=== PATIENT | female | born 1995 | race Caucasian/White ===

== ENCOUNTER 2019-10-10 17:37 | Emergency (ER) | payer OTHER ==
[2019-10-10 17:42] VITALS: BP 122/89; RESP 18; TEMP 98.7
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
[2019-10-10 19:23] VITALS: PULSE 89
== END 2019-10-10 19:22 | disposition home or self-care (01) ==
LOC: EC 17:37
DX: S00.83XA Contusion of other part of head, initial encounter (principal); S00.31XA Abrasion of nose, initial encounter; Z87.891 Personal history of nicotine dependence; Y04.0XXA Assault by unarmed brawl or fight, initial encounter; Y93.89 Activity, other specified; Y92.009 Unspecified place in unspecified non-institutional (private) residence as the place of occurrence of the external cause
CPT/HCPCS: 70486; 99284

== ENCOUNTER 2019-10-13 12:48 | Emergency (ER) | payer OTHER ==
[2019-10-13 13:43] VITALS: BP 140/71; PULSE 78; RESP 18; TEMP 98.3
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
== END 2019-10-13 14:21 | disposition home or self-care (01) ==
LOC: EC 12:48
DX: H10.89 Other conjunctivitis (principal); S00.83XA Contusion of other part of head, initial encounter; Z87.891 Personal history of nicotine dependence; X58.XXXA Exposure to other specified factors, initial encounter
CPT/HCPCS: 99283

== ENCOUNTER 2023-05-11 20:02 | Emergency (ER) | payer BC, OTHER ==
[2023-05-11 20:12] VITALS: RESP 18
[2023-05-11 20:57] LABS: Appearance,Urine Clear (Clear); Bilirubin,Urine Negative (Negative); Blood,Urine Negative (Negative); Color,Urine Yellow; Glucose,Urine (UA) Negative (Negative); Ketones,Urine 1+ (Negative); Leukocyte Esterase,Urine Negative (Negative); Nitrite,Urine Negative (Negative); Protein,Urine Negative (Negative); Specific Gravity,Urine 1.015 (1.001-1.035); Urobilinogen,Urine <2.0 mg/dL (<2.0)
[2023-05-11] MEDS ORDERED: ACETAMINOPHEN TAB 500 MG TAB PO STA (22:12)
[2023-05-11 23:18] LABS: Basophils % (A) 0 %; Eosinophils # (A) 0.2 k/uL (0-0.7); Eosinophils % (A) 2 %; HCT 37.9 % (34.0-46.0); HGB 12.6 gm/dL (11.4-16.0); Lymphocytes # (A) 3.9 k/uL (1.0-4.8); Lymphocytes % (A) 30 %; MCH 28.1 pg (25.0-35.0); MCHC 33.3 g/dL (31.0-37.0); MCV 84.4 fL (80.0-100.0); Mean Platelet Volume 8.2; Monocytes # (A) 0.6 k/uL (0-1.0); Monocytes % (A) 4 %; Neutrophils # (A) 8.2 k/uL (1.3-7.7); Neutrophils % (A) 63 %; Platelet Count 181 k/uL (150-450); RBC 4.49 m/uL (3.80-5.40); RDW 13.5 % (11.5-15.5)
[2023-05-11 23:32] LABS: African American GFR (CKD) >90 (>60 ml/min/1.73 sqM); Anion Gap 7 mmol/L; Blood Urea Nitrogen 6 mg/dL (7-17); Calcium 8.7 mg/dL (8.4-10.2); Carbon Dioxide 23 mmol/L (22-30); Chloride 104 mmol/L (98-107); Glucose 85 mg/dL (74-99); Non-African American GFR(CKD) >90 (>60 ml/min/1.73 sqM); Potassium 3.5 mmol/L (3.5-5.1); Sodium 134 mmol/L (137-145)
[2023-05-11 23:38] LABS: Partial Thromboplastin Time 23.3 sec (22.0-30.0); Prothrombin Time 10.7 sec (9.0-12.0)
--- NOTE | 2023-05-11 23:54 | US ---
EXAM: US Pelvis Transabdominal and Transvaginal, Complete CLINICAL HISTORY: ITS.REASON US Reason: lower abd cramping TECHNIQUE: Real-time complete transabdominal and transvaginal pelvic ultrasound with image documentation. Transvaginal imaging was used for better evaluation of the endometrium and adnexa. COMPARISON: No relevant prior studies available. FINDINGS: Single, intrauterine gestation with an estimated gestational age of 6 weeks 5 days. Estimated delivery date December 30, 2023. heart rate not detected. [place]-rump length measures 4 mm, therefore follow-up exam recommended to reevaluate. Heartbeat should be detected by 7 mm. Ovaries are within normal limits. No free fluid in the pelvis. IMPRESSION: heart rate not detected. [place]-rump length measures 4 mm, therefore follow-up exam recommended to reevaluate. Heartbeat should be detected by 7 mm.
[2023-05-12 00:15] LABS: HCG,Quantitative Serum 64546.7 mIU/mL
--- NOTE | 2023-05-12 00:33 | ED ---
General Adult HPI - General Chief complaint: Abdominal Pain Stated complaint: abd pain Time Seen by Provider: 05/11/23 21:53 Source: patient, RN notes reviewed, old records reviewed Mode of arrival: ambulatory Limitations: no limitations - History of Present Illness Initial comments: Patient is a 28-year-old female who presents emergency Department complaining of lower abdominal cramping. Recently, she is . Presents over concern for the cramping and . Denies any vaginal discharge or bleeding. Denies any nausea or vomiting. Denies any other abdominal pain. Denies any chest pain or shortness of breath. Presents for further evaluation at this time. Has not yet followed up with [facility] but is waiting for an appointment which should be scheduled within the next few days. Has started vitamins. Patient is . - Related Data Previous Rx's Medication Instructions Recorded Ondansetron HCl [Zofran] 4 mg PO Q8HR #12 tab 06/16/14 Polymyxin B-Trimeth Sulf Ophth 1 drops BOTH EYES Q4H #1 bottle 10/13/19 [Polytrim Opthalmic] Allergies Allergy/AdvReac Type Severity Reaction Status Date / Time No Known Allergies Allergy Verified 05/11/23 20:12 Review of Systems ROS Statement: Those systems with pertinent positive or pertinent negative responses have been documented in the HPI. Review of Systems: CONST: Denies fever EYES: Denies blurry vision ENT: Denies nasal congestion C/V: Denies Chest pain RESP: Denies shortness of breath GI: Endorses abdominal cramping : Denies dysuria SKIN: Denies rash. MSK: Denies joint pain. NEURO: Denies headache ROS Other: All systems not noted in ROS Statement are negative. Past Medical History Past Medical History: No Reported History History of Any Multi-Drug Resistant Organisms: None Reported Past Surgical History: No Surgical Hx Reported Past Psychological History: ADD/ADHD Past Alcohol Use History: None Reported Past Drug Use History: None Reported General Exam - General Exam Comments Initial Comments: General: Appears in no acute distress. HEAD: Normal with no signs of head trauma. EYES: PERRLA, EOMI, conjunctiva normal, no discharge. ENT: Hearing grossly intact, normal oropharynx. RESPIRATORY: Clear breath sounds bilaterally. No wheezes, rales, or rhonchi. C/V: Regular rate and rhythm. S1 and S2 auscultated, no edema, peripheral pulses 2+ and intact throughout ABD: Abd is soft, nontender, nondistended EXT: Normal range of motion, no obvious deformity SKIN: No rashes or lesions observed on exposed skin. NEURO: Alert and Oriented 4. Limitations: no limitations Course Vital Signs 05/11/23 05/12/23 20:07 00:43 Temperature 97.7 F 98.2 F Pulse Rate 79 68 Respiratory 18 18 Rate Blood Pressure 136/85 119/76 O2 Sat by Pulse 98 98 Oximetry Medical Decision Making - Medical Decision Making Was pt. sent in by a medical professional or institution (, PA, TAPE LIBRARIAN, urgent care, hospital, or custodial...) When possible be specific @ -No Did you speak to anyone other than the patient for history (EMS, parent, family, police, friend...)? What history was obtained from this source @ -No Did you review nursing and triage notes (agree or disagree)? Why? @ -I reviewed and agree with nursing and triage notes Were old charts reviewed (outside hosp., previous admission, EMS record, old EKG, old radiological studies, urgent care reports/EKG's, custodial records)? Report findings @ -No old charts were reviewed Differential Diagnosis (chest pain, altered mental status, abdominal pain women, abdominal pain men, vaginal bleeding, weakness, fever, dyspnea, syncope, headache, dizziness, GI bleed, back pain, seizure, CVA, palpatations, mental health, musculoskeletal)? @ -Differential Abdominal Pain Women: Appendicitis, Cholecystitis, diverticulosis, ischemic bowel, pancreatitis, hepat itis, UTI, gastroenteritis, AAA, incarcerated hernia, bowel obstruction, constipation, inflammatory bowel, hepatitis, peptic ulcer disease, splenic infarction, perforated viscus, vulvitis, ovarian torsion, PID, kidney stone, placenta abruption, this is not meant to be an all-inclusive list EKG interpreted by me (3pts min.). @ -None done X-rays interpreted by me (1pt min.). @ -None done CT interpreted by me (1pt min.). @ -None done U/S interpreted by me (1pt. min.). @ -Ultrasound was interpreted by radiology as revealing an intrauterine gesta tion with estimated age of 6 weeks and 5 days with no heartbeat. [place]-rump length is 4 mm. Heartbeat should be detected by 7 mm. What testing was considered but not performed or refused? (CT, X-rays, U/S, labs)? Why? @ -None What meds were considered but not given or refused? Why? @ -None Did you discuss the management of the patient with other professionals (professionals i.e. , PA, TAPE LIBRARIAN, lab, RT, psych nurse, director of social media marketing, manager economic, teacher, field artillery officer, protective services case worker)? Give summary @ -No Was smoking cessation discussed for >3mins.? @ -No Was critical care preformed (if so, how long)? @ -No Were there social determinants of health that impacted care today? How? (Homelessness, low income, unemployed, alcoholism, drug addiction, transportation, low edu. Level, literacy, decrease access to med. care, assisted, rehab)? @ -No Was there de-escalation of care discussed even if they declined (Discuss DNR or withdrawal of care, Hospice)? DNR status @ -No What co-morbidities impacted this encounter? (DM, HTN, Smoking, COPD, CAD, Cancer, CVA, ARF, Chemo, Hep., AIDS, mental health diagnosis, sleep apnea, mor bid obesity)? @ -None Was patient admitted / discharged? Hospital course, mention meds given and route, prescriptions, significant lab abnormalities, going to OR and other pertinent info. @ -Based on the patient's presentation and physical exam, I'm concerned for patient's abdominal cramping in the setting of new . We will obtain basic labs, as well as an ultrasound. She'll be given Tylenol. Vital signs except limits. She is no vaginal bleeding. She was in agreement this plan. Patient's labs are within acceptable limits. Patient's quantitative beta hCG is elevated to 64,000. Blood type is Rh+. Ultrasound reveals an intrauterine gestation however there is no heartbeat yet. Estimated gestational age is 6 weeks and 5 days. He is only 4 mm in length for [place]-rump length, and heartbeat should be detected by 7 mm in crown-rump length. I did discuss this with the patient. She expressed understanding. She needs f ollow-up ultrasound which she was in agreement with. She is working on following up with [facility]. She'll be discharged home at this time. We discussed the cramping from a normal however she should monitor for any signs of bleeding or discharge and should return if she has any concerns. I instructed the patient to follow up with their PCP in the next 1-3 days. I explained that the patient should return to the emergency department if they experience any worsening symptoms. Strict return precautions were discussed with the patient. The patient expressed understanding of these instructions. I answered all questions that the patient had. The patient was discharged home in good condition with their prescriptions and follow up information. Undiagnosed new problem with uncertain prognosis? @ -No Drug Therapy requiring intensive monitoring for toxicity (Heparin, Nitro, Insulin, Cardizem)? @ -No Were any procedures done? @ -No Diagnosis/symptom? @ -Abdominal cramping, Acute, or Chronic, or Acute on Chronic? @ -Acute Uncomplicated (without systemic symptoms) or Complicated (systemic symptoms)? @ -Uncomplicated Side effects of treatment? @ -No Exacerbation, Progression, or Severe Exacerbation? @ -No Poses a threat to life or bodily function? How? (Chest pain, USA, IA, pneumonia, PE, COPD, DKA, ARF, appy, cholecystitis, CVA, Diverticulitis, Homicidal, Suicidal, threat to staff... and all critical care pts) @ -No - Lab Data Result diagrams: 05/11/23 22:45 05/11/23 22:45 Lab Results 05/11/23 05/11/23 05/11/23 Range/Units 20:20 20:20 22:45 WBC 13.0 H (3.8-10.6) k/uL RBC 4.49 (3.80-5.40) m/uL Hgb 12.6 (11.4-16.0) gm/dL Hct 37.9 (34.0-46.0) % MCV 84.4 (80.0-100.0) fL MCH 28.1 (25.0-35.0) pg MCHC 33.3 (31.0-37.0) g/dL RDW 13.5 (11.5-15.5) % Plt Count 181 (150-450) k/uL MPV 8.2 Neutrophils % 63 % Lymphocytes % 30 % Monocytes % 4 % Eosinophils % 2 % Basophils % 0 % Neutrophils # 8.2 H (1.3-7.7) k/uL Lymphocytes # 3.9 (1.0-4.8) k/uL Monocytes # 0.6 (0-1.0) k/uL Eosinophils # 0.2 (0-0.7) k/uL Basophils # 0.0 (0-0.2) k/uL PT (9.0-12.0) sec INR (<1.2) APTT (22.0-30.0) sec Sodium (137-145) mmol/L Potassium (3.5-5.1) mmol/L Chloride (98-107) mmol/L Carbon Dioxide (22-30) mmol/L Anion Gap mmol/L BUN (7-17) mg/dL Creatinine (0.52-1.04) mg/dL Est GFR (CKD-EPI)AfAm (>60 ml/min/1.73 sqM) Est GFR (CKD-EPI)NonAf (>60 ml/min/1.73 sqM) Glucose (74-99) mg/dL Calcium (8.4-10.2) mg/dL HCG, Quant mIU/mL Urine Color Yellow Urine Appearance Clear (Clear) Urine pH 6.0 (5.0-8.0) Ur Specific [place] 1.015 (1.001-1.035) Urine Protein Negative (Negative) Urine Glucose (UA) Negative (Negative) Urine Ketones 1+ H (Negative) Urine Blood Negative (Negative) Urine Nitrite Negative (Negative) Urine Bilirubin Negative (Negative) Urine Urobilinogen <2.0 (<2.0) mg/dL Ur Leukocyte Esterase Negative (Negative) Urine HCG, Qual Detected (Not Detectd) Blood Type Blood Type Recheck Bld Type Recheck Status Antibody Screen Spec Expiration Date 05/11/23 05/11/23 05/11/23 Range/Units 22:45 22:45 22:45 WBC (3.8-10.6) k/uL RBC (3.80-5.40) m/uL Hgb (11.4-16.0) gm/dL Hct (34.0-46.0) % MCV (80.0-100.0) fL MCH (25.0-35.0) pg MCHC (31.0-37.0) g/dL RDW (11.5-15.5) % Plt Count (150-450) k/uL MPV Neutrophils % % Lymphocytes % % Monocytes % % Eosinophils % % Basophils % % Neutrophils # (1.3-7.7) k/uL Lymphocytes # (1.0-4.8) k/uL Monocytes # (0-1.0) k/uL Eosinophils # (0-0.7) k/uL Basophils # (0-0.2) k/uL PT 10.7 (9.0-12.0) sec INR 1.0 (<1.2) APTT 23.3 (22.0-30.0) sec Sodium 134 L (137-145) mmol/L Potassium 3.5 (3.5-5.1) mmol/L Chloride 104 (98-107) mmol/L Carbon Dioxide 23 (22-30) mmol/L Anion Gap 7 mmol/L BUN 6 L (7-17) mg/dL Creatinine 0.45 L (0.52-1.04) mg/dL Est GFR (CKD-EPI)AfAm >90 (>60 ml/min/1.73 sqM) Est GFR (CKD-EPI)NonAf >90 (>60 ml/min/1.73 sqM) Glucose 85 (74-99) mg/dL Calcium 8.7 (8.4-10.2) mg/dL HCG, Quant 95828.7 mIU/mL Urine Color Urine Appearance (Clear) Urine pH (5.0-8.0) Ur Specific [place] (1.001-1.035) Urine Protein (Negative) Urine Glucose (UA) (Negative) Urine Ketones (Negative) Urine Blood (Negative) Urine Nitrite (Negative) Urine Bilirubin (Negative) Urine Urobilinogen (<2.0) mg/dL Ur Leukocyte Esterase (Negative) Urine HCG, Qual (Not Detectd) Blood Type A Positive Blood Type Recheck A Pos Bld Type Recheck Status No Antibody Screen NEGATIVE Spec Expiration Date 05/14/20232344 Disposition Clinical Impression: , Abdominal cramping Disposition: HOME SELF-CARE Condition: Good Instructions (If sedation given, give patient instructions): (ED) Is patient prescribed a controlled substance at d/c from ED?: No Referrals: None,Stated [Primary Care Provider] - 1-2 days Time of Disposition: 00:28
[2023-05-12 00:44] VITALS: BP 119/76; PULSE 68; TEMP 98.2
== END 2023-05-12 00:42 | disposition home or self-care (01) ==
LOC: EC 20:02
DX: O26.891 Other specified pregnancy related conditions, first trimester (principal); Z3A.01 Less than 8 weeks gestation of pregnancy
CPT/HCPCS: 36415; 76801; 76817; 80048; 81003; 81025; 84702; 85025; 85610; 85730; 86850; 86900; 86901; 99284

== ENCOUNTER 2023-05-18 08:32 | Emergency (ER) | payer BC, OTHER ==
[2023-05-18] MEDS ORDERED: ACETAMINOPHEN TAB 500 MG TAB PO STA (08:47)
--- NOTE | 2023-05-18 08:57 | ED ---
Skin/Abscess/FB HPI - General Chief complaint: Skin/Abscess/Foreign Body Stated complaint: R Rash of Shoulder going to face,dental pain Time Seen by Provider: 05/18/23 08:40 Source: patient, RN notes reviewed Mode of arrival: ambulatory Limitations: no limitations - History of Present Illness Initial comments: This is a 28-year-old female who presents to the emergency department for a rash and dental pain. 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 This is very itchy. Believes that it has started to progress and she is also getting inflammation in the cheeks. Additionally, last night, states that her wisdom teeth on the bottom right jaw broke and it started bleeding. She has since had severe pain. She has not taken any medication to treat her symptoms. Her SENIOR GEOTECHNICAL ENGINEER is Dr. Saucedo. States that she was instructed to come to the emergency department for further evaluation before following up with her dentist. Denies any fevers, chills, sore throat, cough, dyspnea, chest pain, palpit ations, abdominal pain, nausea, vomiting, diarrhea, back pain, or headaches. MD complaint: rash - Related Data Previous Rx's Medication Instructions Recorded Acetaminophen Tab [Tylenol Tab] 1,000 mg PO Q6HR PRN #30 tablet 05/18/23 Amoxic-Pot Clav 875-125Mg 1 tab PO Q12HR 10 Days #20 tab 05/18/23 [Augmentin 875-125] Allergies Allergy/AdvReac Type Severity Reaction Status Date / Time No Known Allergies Allergy Verified 05/18/23 09:45 Review of Systems ROS Statement: Those systems with pertinent positive or pertinent negative responses have been documented in the HPI. ROS Other: All systems not noted in ROS Statement are negative. Past Medical History Past Medical History: No Reported History History of Any Multi-Drug Resistant Organisms: None Reported Past Surgical History: No Surgical Hx Reported Past Psychological History: ADD/ADHD Smoking Status: Former smoker Past Alcohol Use History: None Reported Past Drug Use History: None Reported General Exam Limitations: no limitations General appearance: alert, in no apparent distress Head exam: Present: atraumatic, normocephalic, normal inspection ENT exam: Present: other (Multiple dental caries. Swelling and fullness to the right cheek. No tongue elevation or swelling to the floor of the mouth.) Respiratory exam: Present: normal lung sounds bilaterally. Absent: respiratory distress, wheezes, rales, rhonchi, stridor Cardiovascular Exam: Present: regular rate, normal rhythm, normal heart sounds. Absent: systolic murmur, diastolic murmur, rubs, gallop, clicks Neurological exam: Present: alert, oriented X3, CN II-XII intact Psychiatric exam: Present: normal affect, normal mood Skin exam: Present: other (Dry scaling rash at the base of the right side of the neck.) Course Vital Signs 05/18/23 05/18/23 08:33 10:37 Temperature 97.2 F L 97.8 F Pulse Rate 83 75 Respiratory 16 18 Rate Blood Pressure 138/83 130/76 O2 Sat by Pulse 99 100 Oximetry Medical Decision Making - Medical Decision Making This is a 28-year-old female who presents to the emergency department for a rash and dental pain. Was pt. sent in by a medical professional or institution? @ -No Did you speak to anyone other than the patient for history? @ -No Did you review nursing and triage notes? @ -Yes, and I agree, it is accurate with regards to the patient's symptoms. Were old charts reviewed? @ -No Differential Diagnosis? @ -Differential Rash: Roseola, measles, Lyme disease, erythema multiforme, cellulitis, toxic shock syndrome, Jesus Robert syndrome, Kawasaki disease, otilia mountain spotted fever, contact dermatitis, allergic dermatitis, measles, mumps, rubella, varicella, meningococcal disease, drug reaction, coxsackievirus, This is not meant to be an all-inclusive list. EKG interpreted by me (3pts min.)? @ -Not obtained X-rays interpreted by me (1pt min.)? @ -Not obtained CT interpreted by me (1pt min.)? @ -Not obtained U/S interpreted by me (1pt. min.)? @ -Not obtained What testing was considered but not performed? (CT, X-rays, U/S, labs)? Why? @ -None What meds were considered but not given? Why? @ -None Did you discuss the management of the patient with other professionals? @ -No Did you reconcile home meds? @ -No Was smoking cessation discussed for >3mins.? @ -No Was critical care preformed (if so, how long)? @ -No Were there social determinants of health that impacted care today? How? (Homelessness, low income, unemployed, alcoholism, drug addiction, transportation, low edu. Level, literacy, decrease access to med. care, residential, rehab)? @ -No Was there de-escalation of care discussed even if they declined? (Discuss DNR or withdrawal of care, Hospice)? @ -No What co-morbidities impacted this encounter? (DM, HTN, Smoking, COPD, CAD, Cancer, CVA, Hep., AIDS, mental health diagnosis, sleep apnea, morbid obesity)? @ - Was patient admitted / discharged? @ -Discharged. Lab work obtained and found to be nonactionable. Benadryl cream was applied to the rash. She was given a dose of Tylenol and benzocaine gel for the dental pain, which she states was beneficial. We'll treat the patient for a dental abscess/infection and a contact dermatitis. Prescription for Augmentin and Tylenol provided with dosing instructions reviewed. She was also sent home with the Benadryl cream and benzocaine gel for further symptomatic control. Undiagnosed new problem with uncertain prognosis? @ -None Drug Therapy requiring intensive monitoring for toxicity (Heparin, Nitro, Insulin, Cardizem)? @ -None Were any procedures done? @ -None Diagnosis/symptom? @ -Contact dermatitis, dental infection Acute, or Chronic, or Acute on Chronic? @ -Acute Uncomplicated (without systemic symptoms) or Complicated (systemic symptoms)? @ -Uncomplicated Side effects of treatment? @ -None Exacerbation, Progression, or Severe Exacerbation] @ -Not applicable Poses a threat to life or bodily function? @ -No Return precautions reviewed in depth, the patient is instructed to return to the emergency department with any new, worsening, or concerning symptoms. Patient verbalized understanding. This case was discussed in detail with the attending ED physician, Dr. Coronel. Presentation, findings, and treatment plan discussed in detail as well. - Lab Data Result diagrams: 05/18/23 09:00 05/18/23 09:00 Lab Results 05/18/23 05/18/23 05/18/23 Range/Units 09:00 09:00 09:00 WBC 8.8 (3.8-10.6) k/uL RBC 4.92 (3.80-5.40) m/uL Hgb 13.6 (11.4-16.0) gm/dL Hct 40.8 (34.0-46.0) % MCV 82.9 (80.0-100.0) fL MCH 27.6 (25.0-35.0) pg MCHC 33.3 (31.0-37.0) g/dL RDW 13.5 (11.5-15.5) % Plt Count 179 (150-450) k/uL MPV 9.1 Neutrophils % 68 % Lymphocytes % 24 % Monocytes % 5 % Eosinophils % 2 % Basophils % 0 % Neutrophils # 6.0 (1.3-7.7) k/uL Lymphocytes # 2.1 (1.0-4.8) k/uL Monocytes # 0.4 (0-1.0) k/uL Eosinophils # 0.2 (0-0.7) k/uL Basophils # 0.0 (0-0.2) k/uL Sodium 135 L (137-145) mmol/L Potassium 4.6 (3.5-5.1) mmol/L Chloride 104 (98-107) mmol/L Carbon Dioxide 24 (22-30) mmol/L Anion Gap 7 mmol/L BUN 6 L (7-17) mg/dL Creatinine 0.47 L (0.52-1.04) mg/dL Est GFR (CKD-EPI)AfAm >90 (>60 ml/min/1.73 sqM) Est GFR (CKD-EPI)NonAf >90 (>60 ml/min/1.73 sqM) Glucose 95 (74-99) mg/dL Plasma Lactic Acid Sage 1.0 (0.7-2.0) mmol/L Calcium 8.5 (8.4-10.2) mg/dL Total Bilirubin 0.5 (0.2-1.3) mg/dL AST 20 (14-36) U/L ALT 15 (4-34) U/L Alkaline Phosphatase 62 (38-126) U/L Total Protein 6.8 (6.3-8.2) g/dL Albumin 3.8 (3.5-5.0) g/dL Disposition Clinical Impression: Contact dermatitis, Dental abscess Disposition: HOME SELF-CARE Instructions (If sedation given, give patient instructions): Dental Abscess (ED), Contact Dermatitis (ED) Additional Instructions: Return to the emergency department with any new, worsening, or concerning sy mptoms. Take the antibiotic as prescribed for 10 days. You can take Tylenol as needed for pain relief. You can continue to use the provided Orajel and topical Benadryl cream for symptomatic control. Follow up with your primary care provider in 1-2 days. Prescriptions: Amoxic-Pot Clav 875-125Mg [Augmentin 875-125] 1 tab PO Q12HR 10 Days #20 tab Acetaminophen Tab [Tylenol Tab] 1,000 mg PO Q6HR PRN #30 tablet PRN Reason: Pain Is patient prescribed a controlled substance at d/c from ED?: No Referrals: None,Stated [Primary Care Provider] - 1-2 days
[2023-05-18] MEDS ORDERED: BENZOCAINE 20 % GEL 11.9 GM TUBE MM ONE (09:00)
[2023-05-18] MEDS ORDERED: diphenhydrAMINE 2% CREAM 28.4 GM TUBE TOPICAL ONE (09:00)
[2023-05-18 09:59] LABS: ALT 15 U/L (4-34); African American GFR (CKD) >90 (>60 ml/min/1.73 sqM); Albumin 3.8 g/dL (3.5-5.0); Anion Gap 7 mmol/L; Blood Urea Nitrogen 6 mg/dL (7-17); Calcium 8.5 mg/dL (8.4-10.2); Carbon Dioxide 24 mmol/L (22-30); Chloride 104 mmol/L (98-107); Glucose 95 mg/dL (74-99); Non-African American GFR(CKD) >90 (>60 ml/min/1.73 sqM); Sodium 135 mmol/L (137-145); Total Bilirubin 0.5 mg/dL (0.2-1.3); Total Protein 6.8 g/dL (6.3-8.2)
[2023-05-18 10:00] LABS: AST 20 U/L (14-36); Alkaline Phosphatase 62 U/L (38-126); Potassium 4.6 mmol/L (3.5-5.1)
[2023-05-18 10:10] LABS: Basophils % (A) 0 %; Eosinophils # (A) 0.2 k/uL (0-0.7); Eosinophils % (A) 2 %; HCT 40.8 % (34.0-46.0); HGB 13.6 gm/dL (11.4-16.0); Lymphocytes # (A) 2.1 k/uL (1.0-4.8); Lymphocytes % (A) 24 %; MCH 27.6 pg (25.0-35.0); MCHC 33.3 g/dL (31.0-37.0); MCV 82.9 fL (80.0-100.0); Mean Platelet Volume 9.1; Monocytes # (A) 0.4 k/uL (0-1.0); Monocytes % (A) 5 %; Neutrophils % (A) 68 %; Platelet Count 179 k/uL (150-450); RBC 4.92 m/uL (3.80-5.40); RDW 13.5 % (11.5-15.5); WBC 8.8 k/uL (3.8-10.6)
[2023-05-18 10:47] VITALS: BP 130/76; PULSE 75; RESP 18; TEMP 97.8
== END 2023-05-18 10:47 | disposition home or self-care (01) ==
LOC: EC 08:32
DX: O99.711 Diseases of the skin and subcutaneous tissue complicating pregnancy, first trimester (principal); L25.9 Unspecified contact dermatitis, unspecified cause; O99.611 Diseases of the digestive system complicating pregnancy, first trimester; K04.7 Periapical abscess without sinus; K02.9 Dental caries, unspecified; Z3A.00 Weeks of gestation of pregnancy not specified; Z87.891 Personal history of nicotine dependence
CPT/HCPCS: 36415; 80053; 83605; 85025; 99283

== ENCOUNTER 2023-06-02 16:54 | Emergency (ER) | payer BC, OTHER ==
[2023-06-02 18:16] VITALS: BP 133/79; PULSE 85; RESP 18; TEMP 99
[2023-06-02 18:54] LABS: Appearance,Urine Clear (Clear); Bilirubin,Urine Negative (Negative); Blood,Urine Negative (Negative); Color,Urine Light Red; Glucose,Urine (UA) Negative (Negative); Ketones,Urine Trace (Negative); Leukocyte Esterase,Urine Negative (Negative); Nitrite,Urine Negative (Negative); Protein,Urine Trace (Negative); Specific Gravity,Urine 1.034 (1.001-1.035)
[2023-06-02 18:59] LABS: Basophils # (A) 0.1 k/uL (0-0.2); Basophils % (A) 0 %; Eosinophils # (A) 0.2 k/uL (0-0.7); Eosinophils % (A) 2 %; HCT 39.7 % (34.0-46.0); HGB 13.8 gm/dL (11.4-16.0); Lymphocytes # (A) 3.5 k/uL (1.0-4.8); Lymphocytes % (A) 27 %; MCH 28.5 pg (25.0-35.0); MCHC 34.7 g/dL (31.0-37.0); MCV 82.1 fL (80.0-100.0); Mean Platelet Volume 7.8; Monocytes # (A) 0.5 k/uL (0-1.0); Monocytes % (A) 4 %; Neutrophils # (A) 8.3 k/uL (1.3-7.7); Neutrophils % (A) 65 %; Platelet Count 213 k/uL (150-450); RBC 4.83 m/uL (3.80-5.40); RDW 13.4 % (11.5-15.5); WBC 12.7 k/uL (3.8-10.6)
[2023-06-02 19:08] LABS: ALT 14 U/L (4-34); AST 20 U/L (14-36); African American GFR (CKD) >90 (>60 ml/min/1.73 sqM); Alkaline Phosphatase 75 U/L (38-126); Anion Gap 9 mmol/L; Blood Urea Nitrogen 6 mg/dL (7-17); Calcium 9.1 mg/dL (8.4-10.2); Carbon Dioxide 23 mmol/L (22-30); Chloride 103 mmol/L (98-107); Glucose 82 mg/dL (74-99); Non-African American GFR(CKD) >90 (>60 ml/min/1.73 sqM); Potassium 3.9 mmol/L (3.5-5.1); Sodium 135 mmol/L (137-145); Total Bilirubin 0.6 mg/dL (0.2-1.3); Total Protein 7.5 g/dL (6.3-8.2)
--- NOTE | 2023-06-02 19:09 | ED ---
General Adult HPI - General Chief complaint: Vaginal Bleeding Stated complaint: 11wks, vag bleeding Time Seen by Provider: 06/02/23 18:17 Source: patient, RN notes reviewed Mode of arrival: ambulatory - History of Present Illness Initial comments: 28-year-old female presents with chief complaint of vaginal bleeding in . She states that she noticed blood while wiping after using the bathroom today. Patient had cramping this morning but is not having any at this time. Patient reports that she is around 10-11 weeks . Her last menstrual period was [id number]. She was seen in our facility 2-3 weeks ago and an ultrasound obtained at that time and associated blood work. Patient's blood type A+ from type and screen at that visit. States Dr. Saucedo is her OB. She has not seen her yet this . She has an appointment scheduled for 06/13/23. - Related Data Previous Rx's Medication Instructions Recorded Acetaminophen Tab [Tylenol Tab] 1,000 mg PO Q6HR PRN #30 tablet 05/18/23 Amoxic-Pot Clav 875-125Mg 1 tab PO Q12HR 10 Days #20 tab 05/18/23 [Augmentin 875-125] Allergies Allergy/AdvReac Type Severity Reaction Status Date / Time amoxicillin Allergy Rash/Hives Verified 06/02/23 18:16 Review of Systems ROS Statement: Those systems with pertinent positive or pertinent negative responses have been documented in the HPI. ROS Other: All systems not noted in ROS Statement are negative. Past Medical History Past Medical History: No Reported History History of Any Multi-Drug Resistant Organisms: None Reported Past Surgical History: No Surgical Hx Reported Past Psychological History: ADD/ADHD Smoking Status: Former smoker Past Alcohol Use History: None Reported Past Drug Use History: None Reported General Exam Limitations: no limitations General appearance: alert, in no apparent distress Head exam: Present: atraumatic, normocephalic, normal inspection Eye exam: Present: normal appearance, PERRL, EOMI. Absent: scleral icterus, conjunctival injection, periorbital swelling ENT exam: Present: normal exam, mucous membranes moist Neck exam: Present: normal inspection. Absent: tenderness, meningismus, lymphadenopathy Respiratory exam: Present: normal lung sounds bilaterally. Absent: respiratory distress, wheezes, rales, rhonchi, stridor Cardiovascular Exam: Present: regular rate, normal rhythm, normal heart sounds. Absent: systolic murmur, diastolic murmur, rubs, gallop, clicks GI/Abdominal exam: Present: soft, normal bowel sounds. Absent: distended, tenderness, guarding, rebound, rigid External exam: Present: other (patient refused exam ) Extremities exam: Present: normal inspection, full ROM, normal capillary refill. Absent: tenderness, pedal edema, joint swelling, calf tenderness Back exam: Present: normal inspection Neurological exam: Present: alert, oriented X3 Psychiatric exam: Present: anxious Skin exam: Present: warm, dry, intact, normal color. Absent: rash Course Vital Signs 06/02/23 18:12 Temperature 99 F Pulse Rate 85 Respiratory 18 Rate Blood Pressure 133/79 O2 Sat by Pulse 99 Oximetry Medical Decision Making - Medical Decision Making Was pt. sent in by a medical professional or institution ([facility], [employer]ER, urgent care, hospital, or group home...) When possible be specific @ -No Did you speak to anyone other than the patient for history (EMS, parent, family, police, friend...)? What history was obtained from this source @ -No Did you review nursing and triage notes (agree or disagree)? Why? @ -I reviewed and agree with nursing and triage notes Were old charts reviewed (outside hosp., previous admission, EMS record, old EKG, old radiological studies, urgent care reports/EKG's, group home records)? Report findings @ -No old charts were reviewed Differential Diagnosis (chest pain, altered mental status, abdominal pain women, abdominal pain men, vaginal bleeding, weakness, fever, dyspnea, syncope, headache, dizziness, GI bleed, back pain, seizure, CVA, palpatations, mental health, musculoskeletal)? @ -Differential Vaginal Bleeding: Spontaneous , threatened , molar , ectopic , bloody show, incompetent cervix, abruptioplacenta, placenta previa, uterine rupture, dysfunctional uterine bleeding, hemorrhage, uterine fibroids, this is not meant to be an all-inclusive list. EKG interpreted by me (3pts min.). @ -none X-rays interpreted by me (1pt min.). @ -None done CT interpreted by me (1pt min.). @ -None done U/S interpreted by me (1pt. min.). @ -US interpreted by radiology showed gestational sac without yolk sac or pole. 2.1cm hypoechoic lesion involving the right ovary What testing was considered but not performed or refused? (CT, X-rays, U/S, labs)? Why? @ -None What meds were considered but not given or refused? Why? @ -None Did you discuss the management of the patient with other professionals (professionals i.e. Dr., PA, DIVING FISHER, lab, RT, psych nurse, socially responsible investment adviser, director of analytics, teacher, fisheries officer, director of casework department)? Give summary @ -No Was smoking cessation discussed for >3mins.? @ -No Was critical care preformed (if so, how long)? @ -No Were there social determinants of health that impacted care today? How? (Home lessness, low income, unemployed, alcoholism, drug addiction, transportation, low edu. Level, literacy, decrease access to med. care, penitentiary, rehab)? @ -No Was there de-escalation of care discussed even if they declined (Discuss DNR or withdrawal of care, Hospice)? DNR status @ -No What co-morbidities impacted this encounter? (DM, HTN, Smoking, COPD, CAD, Cancer, CVA, ARF, Chemo, Hep., AIDS, mental health diagnosis, sleep apnea, morbid obesity)? @ -None Was patient admitted / discharged? Hospital course, mention meds given and route, prescriptions, significant lab abnormalities, going to OR and other pertinent info. @ -discharged. Patient presented to the emergency department for chief complaint of vaginal bleeding in . CBC showed WBC 12.7, hgb 13.8; CMP showed na 135, K 3.9, HCG 97602; UA showed trace protein and ketones. Ultrasound showed gestational sac without yolk sac or pole which were present on prior ultrasound. Patient's blood type is A+ and therefore does not require rhogam. Patient refused pelvic exam and would not stay for me to call OB. Risks discussed with patient and she expressed understanding. Patient was instructed on strict return precautions and to follow up with Dr. Saucedo's office tomorrow. Patient stable at time of discharge. Case discussed with my attending, Dr. Llanes Undiagnosed new problem with uncertain prognosis? @ -No Drug Therapy requiring intensive monitoring for toxicity (Heparin, Nitro, Insulin, Cardizem)? @ -No Were any procedures done? @ -No Diagnosis/symptom? @ -threatened miscarriage0 Acute, or Chronic, or Acute on Chronic? @ -acute Uncomplicated (without systemic symptoms) or Complicated (systemic symptoms)? @ -uncomplicated Side effects of treatment? @ -No Exacerbation, Progression, or Severe Exacerbation? @ -No Poses a threat to life or bodily function? How? (Chest pain, USA, PA, pneumonia, PE, COPD, DKA, ARF, appy, cholecystitis, CVA, Diverticulitis, Homicidal, Suicidal, threat to staff... and all critical care pts) @ -No - Lab Data Result diagrams: 06/02/23 18:29 06/02/23 18:29 Lab Results 06/02/23 06/02/23 06/02/23 Range/Units 18:29 18:29 18:29 WBC 12.7 H (3.8-10.6) k/uL RBC 4.83 (3.80-5.40) m/uL Hgb 13.8 (11.4-16.0) gm/dL Hct 39.7 (34.0-46.0) % MCV 82.1 (80.0-100.0) fL MCH 28.5 (25.0-35.0) pg MCHC 34.7 (31.0-37.0) g/dL RDW 13.4 (11.5-15.5) % Plt Count 213 (150-450) k/uL MPV 7.8 Neutrophils % 65 % Lymphocytes % 27 % Monocytes % 4 % Eosinophils % 2 % Basophils % 0 % Neutrophils # 8.3 H (1.3-7.7) k/uL Lymphocytes # 3.5 (1.0-4.8) k/uL Monocytes # 0.5 (0-1.0) k/uL Eosinophils # 0.2 (0-0.7) k/uL Basophils # 0.1 (0-0.2) k/uL Sodium 135 L (137-145) mmol/L Potassium 3.9 (3.5-5.1) mmol/L Chloride 103 (98-107) mmol/L Carbon Dioxide 23 (22-30) mmol/L Anion Gap 9 mmol/L BUN 6 L (7-17) mg/dL Creatinine 0.54 (0.52-1.04) mg/dL Est GFR (CKD-EPI)AfAm >90 (>60 ml/min/1.73 sqM) Est GFR (CKD-EPI)NonAf >90 (>60 ml/min/1.73 sqM) Glucose 82 (74-99) mg/dL Calcium 9.1 (8.4-10.2) mg/dL Total Bilirubin 0.6 (0.2-1.3) mg/dL AST 20 (14-36) U/L ALT 14 (4-34) U/L Alkaline Phosphatase 75 (38-126) U/L Total Protein 7.5 (6.3-8.2) g/dL Albumin 4.0 (3.5-5.0) g/dL HCG, Quant 61402.4 mIU/mL Urine Color Light Red Urine Appearance Clear (Clear) Urine pH 6.0 (5.0-8.0) Ur Specific [place] 1.034 (1.001-1.035) Urine Protein Trace H (Negative) Urine Glucose (UA) Negative (Negative) Urine Ketones Trace H (Negative) Urine Blood Negative (Negative) Urine Nitrite Negative (Negative) Urine Bilirubin Negative (Negative) Urine Urobilinogen 2.0 (<2.0) mg/dL Ur Leukocyte Esterase Negative (Negative) Disposition Clinical Impression: Threatened Disposition: HOME SELF-CARE Condition: Stable Instructions (If sedation given, give patient instructions): Threatened Miscarriage (ED) Additional Instructions: Call Dr. Saucedo's office tomorrow to schedule follow up. Please return to the emergency department for any new or worsening symptoms including development of fever or worsening bleeding. Is patient prescribed a controlled substance at d/c from ED?: No Referrals: None,Stated [Primary Care Provider] - 1-2 days Erin Saucedo DO [Doctor of Osteopathic Medicine] - 1-2 days Time of Disposition: 20:21
--- NOTE | 2023-06-02 19:21 | US ---
EXAMINATION TYPE: Ultrasound OB <= 14 weeks transvaginal DATE OF EXAM: 06/02/2023 7:00 PM COMPARISON: 05/11/23 CLINICAL INDICATION: Female, 28 years old with history of 10 wk preg bleeding; spotting x 2 hours. No pain EXAM PERFORMED: Transvaginal (TV) and Transabdominal (TA) EXAM MEASUREMENTS: GESTATIONAL AGE / DATING Physician Established: Pt does not have an OB Dates by LMP: 03/20/23 ( weeks/ days) EDC: 12/25/23 Dates by First Scan: 05/11/23 (6 weeks/5 days) EDC: 12/30/23 Dates by Current Scan for: Only gestational sac seen today. MATERNAL ANATOMY Uterus: 9.0 x 6.3 x 6.0cm Right Ovary: Left Ovary: 2.4 x 1.9 x 1.8cm Post CDS / Adnexa: Hypoechoic area seen either in rt adnexa or rt ovary. Presence of free fluid: No Presence of corpus luteal cyst: Possible Presence of subchorionic bleed: No GESTATION / SURVEY CRL: Not seen MSD: 3.35cm (8 weeks/3 days) Yolk Sac (normal less than 6mm): Not seen IUP: Only the gestational sac visualized Date of LMP: 03/20/23 Beta HcG (if available): pending. On 05/11/23 it was [phone] An empty gestational sac is visualized. Hypoechoic area either adjacent to rt ovary or coming off ova ry is seen measuring 2.1 x 1.7 x 2.1cm. On previous US a yolk sac and fetus was seen, however, not he art beat was detected. IMPRESSION: 1. Gestational sac measuring 3.4 cm but now without a yolk sac or pole identified. We note th at a yolk sac and pole were previously present. This suggests blighted ovum. Corroborate with serial BHCG. 2. A 2.1 cm hypoechoic lesion involving the right ovary, suspected hemorrhagic corpus luteum.
[2023-06-02 19:24] LABS: HCG,Quantitative Serum 10494.4 mIU/mL
== END 2023-06-02 20:26 | disposition home or self-care (01) ==
LOC: EC 16:54
DX: O20.0 Threatened abortion (principal); Z87.891 Personal history of nicotine dependence; Z88.0 Allergy status to penicillin; Z3A.11 11 weeks gestation of pregnancy
CPT/HCPCS: 36415; 76801; 76817; 80053; 81003; 84702; 85025; 99284

== ENCOUNTER 2023-06-04 19:24 | Inpatient (IN) | payer BC, OTHER ==
[2023-06-04 19:53] VITALS: RESP 18
[2023-06-04] MEDS ORDERED: SODIUM CHLORIDE 0.9% 2,000 ML IV STA (20:48)
[2023-06-04 21:11] LABS: Basophils % (A) 0 %; Eosinophils # (A) 0.2 k/uL (0-0.7); Eosinophils % (A) 1 %; HCT 34.2 % (34.0-46.0); HGB 12.1 gm/dL (11.4-16.0); Lymphocytes # (A) 3.1 k/uL (1.0-4.8); Lymphocytes % (A) 20 %; MCH 28.9 pg (25.0-35.0); MCHC 35.3 g/dL (31.0-37.0); MCV 81.7 fL (80.0-100.0); Mean Platelet Volume 8.1; Monocytes # (A) 0.7 k/uL (0-1.0); Monocytes % (A) 4 %; Neutrophils # (A) 11.9 k/uL (1.3-7.7); Neutrophils % (A) 74 %; Platelet Count 206 k/uL (150-450); RBC 4.19 m/uL (3.80-5.40); RDW 13.4 % (11.5-15.5)
[2023-06-04 21:19] LABS: ALT 17 U/L (4-34); AST 20 U/L (14-36); African American GFR (CKD) >90 (>60 ml/min/1.73 sqM); Albumin 3.6 g/dL (3.5-5.0); Alkaline Phosphatase 77 U/L (38-126); Anion Gap 9 mmol/L; Blood Urea Nitrogen 10 mg/dL (7-17); Carbon Dioxide 24 mmol/L (22-30); Chloride 102 mmol/L (98-107); Glucose 105 mg/dL (74-99); Non-African American GFR(CKD) >90 (>60 ml/min/1.73 sqM); Potassium 3.7 mmol/L (3.5-5.1); Sodium 135 mmol/L (137-145); Total Bilirubin 0.4 mg/dL (0.2-1.3); Total Protein 6.8 g/dL (6.3-8.2)
--- NOTE | 2023-06-04 21:19 | ED ---
General Adult HPI - General Chief complaint: Urogenital Stated complaint: Abd pain, cramping, 13 wks Time Seen by Provider: 06/04/23 20:46 Source: patient, RN notes reviewed Mode of arrival: ambulatory Limitations: no limitations - History of Present Illness Initial comments: 28-year-old female presents emergency Department with chief complaint of vaginal bleeding. Patient was evaluated in the emergency department 2 days ago for vaginal bleeding in . At that time she had an empty gestational sac according to the ultrasound. She reports that she is going through about 3 pads per hour since 10 AM this morning. She states that she passed a baseball size clot at that time and has passed about 10 more since then. Blood type is A+. - Related Data Previous Rx's Medication Instructions Recorded Acetaminophen Tab [Tylenol Tab] 1,000 mg PO Q6HR PRN #30 tablet 05/18/23 Amoxic-Pot Clav 875-125Mg 1 tab PO Q12HR 10 Days #20 tab 05/18/23 [Augmentin 875-125] Allergies Allergy/AdvReac Type Severity Reaction Status Date / Time amoxicillin Allergy Rash/Hives Verified 06/02/23 18:16 Review of Systems ROS Statement: Those systems with pertinent positive or pertinent negative responses have been documented in the HPI. ROS Other: All systems not noted in ROS Statement are negative. Past Medical History Past Medical History: No Reported History History of Any Multi-Drug Resistant Organisms: None Reported Past Surgical History: No Surgical Hx Reported Past Psychological History: ADD/ADHD Smoking Status: Former smoker Past Alcohol Use History: None Reported Past Drug Use History: None Reported General Exam Limitations: no limitations General appearance: alert, in no apparent distress Head exam: Present: atraumatic, normocephalic, normal inspection Eye exam: Present: normal appearance, PERRL, EOMI. Absent: scleral icterus, conjunctival injection, periorbital swelling ENT exam: Present: normal exam, mucous membranes moist Neck exam: Present: normal inspection. Absent: tenderness, meningismus, lymphadenopathy Respiratory exam: Present: normal lung sounds bilaterally. Absent: respiratory distress, wheezes, rales, rhonchi, stridor Cardiovascular Exam: Present: normal rhythm, tachycardia GI/Abdominal exam: Present: soft, normal bowel sounds. Absent: distended, tenderness, guarding, rebound, rigid Speculum exam: Present: vaginal bleeding (Heavy with large clots) Extremities exam: Present: normal inspection, full ROM, normal capillary refill. Absent: tenderness, pedal edema, joint swelling, calf tenderness Back exam: Present: normal inspection Neurological exam: Present: alert, oriented X3 Psychiatric exam: Present: normal affect, normal mood Skin exam: Present: diaphoretic, pallor Course Vital Signs 06/04/23 06/04/23 06/04/23 19:50 20:42 22:00 Temperature 98.4 F Pulse Rate 118 H 86 Respiratory 18 Rate Blood Pressure 138/86 126/80 O2 Sat by Pulse 99 97 Oximetry 06/04/23 22:05 Temperature Pulse Rate 98 Respiratory Rate Blood Pressure 123/66 O2 Sat by Pulse 98 Oximetry Medical Decision Making - Medical Decision Making Was pt. sent in by a medical professional or institution ([facility], [employer], urgent care, hospital, or half-way...) When possible be specific @ -No Did you speak to anyone other than the patient for history (EMS, parent, family, police, friend...)? What history was obtained from this source @ -No Did you review nursing and triage notes (agree or disagree)? Why? @ -I reviewed and agree with nursing and triage notes Were old charts reviewed (outside hosp., previous admission, EMS record, old EKG, old radiological studies, urgent care reports/EKG's, half-way records)? Report findings @ -No old charts were reviewed Differential Diagnosis (chest pain, altered mental status, abdominal pain women, abdominal pain men, vaginal bleeding, weakness, fever, dyspnea, syncope, headache, dizziness, GI bleed, back pain, seizure, CVA, palpatations, mental health, musculoskeletal)? @ -not applicable EKG interpreted by me (3pts min.). @ -As above X-rays interpreted by me (1pt min.). @ -None done CT interpreted by me (1pt min.). @ -None done U/S interpreted by me (1pt. min.). @ -None done What testing was considered but not performed or refused? (CT, X-rays, U/S, labs)? Why? @ -None What meds were considered but not given or refused? Why? @ -None Did you discuss the management of the patient with other professionals (professionals i.e. Dr., PA, [employer], lab, RT, psych nurse, health social work professor, mat puncher, teacher, commanding officer homicide squad, rifle case repairer)? Give summary @ -Management was discussed with Dr. Webster on-call security control room officer at [id number] who recom mended observation for one hour with repeat CBC in 2 hours. Repeat CBC was obtained which showed a decrease in hemoglobin from 12.1-10.5, patient had a brief syncopal episode while returning from the bathroom this information was relayed to Dr. Webster who was agreeable to come see the patient Was smoking cessation discussed for >3mins.? @ -No Was critical care preformed (if so, how long)? @ -No Were there social determinants of health that impacted care today? How? (Homelessness, low income, unemployed, alcoholism, drug addiction, transportation, low edu. Level, literacy, decrease access to med. care, alf, rehab)? @ -No Was there de-escalation of care discussed even if they declined (Discuss DNR or withdrawal of care, Hospice)? DNR status @ -No What co-morbidities impacted this encounter? (DM, HTN, Smoking, COPD, CAD, Cancer, CVA, ARF, Chemo, Hep., AIDS, mental health diagnosis, sleep apnea, morbid obesity)? @ -None Was patient admitted / discharged? Hospital course, mention meds given and route, prescriptions, significant lab abnormalities, going to OR and other pertinent info. @ -Patient presented to emergency department with heavy vaginal bleeding that started around 10 AM this morning with the passage of clots. She states she passed a clot the size of a baseball at that time. Since then she states she passed about 10 more. Patient has past multiple large clots here in the emergency department and a pelvic exam was performed. 50 mL of blood was suctioned from the vaginal canal. Dr. Webster was contacted who recommended a repeat CBC and monitoring. Initial CBC was 12.1, repeat was 1-1/2 hours later decreased to 10.5. Patient had a syncopal episode while going back to bed following using the commode. She was out for about [address] Webster was contacted again with this information and was agreeable to come see the patient. Dr. Webster evaluated the patient and recommended admission to [facility]. Patients blood pressure has been stable throughout her ED visit. Patient stable at time of admission. Case discussed with my attending, Dr. Hernandez Undiagnosed new problem with uncertain prognosis? @ -No Drug Therapy requiring intensive monitoring for toxicity (Heparin, Nitro, Insulin, Cardizem)? @ -No Were any procedures done? @ -No Diagnosis/symptom? @ -spontaneous Acute, or Chronic, or Acute on Chronic? @ -acute Uncomplicated (without systemic symptoms) or Complicated (systemic symptoms)? @ -uncomplicated Side effects of treatment? @ -No Exacerbation, Progression, or Severe Exacerbation? @ -No Poses a threat to life or bodily function? How? (Chest pain, [place], [place], pneumonia, PE, COPD, DKA, ARF, appy, cholecystitis, CVA, Diverticulitis, Homicidal, Suicidal, threat to staff... and all critical care pts) @ -yes anemia - Lab Data Result diagrams: 06/04/23 22:32 06/04/23 20:58 Lab Results 06/04/23 06/04/23 06/04/23 Range/Units 20:48 20:58 20:58 WBC 16.0 H (3.8-10.6) k/uL RBC 4.19 (3.80-5.40) m/uL Hgb 12.1 (11.4-16.0) gm/dL Hct 34.2 (34.0-46.0) % MCV 81.7 (80.0-100.0) fL MCH 28.9 (25.0-35.0) pg MCHC 35.3 (31.0-37.0) g/dL RDW 13.4 (11.5-15.5) % Plt Count 206 (150-450) k/uL MPV 8.1 Neutrophils % 74 % Lymphocytes % 20 % Monocytes % 4 % Eosinophils % 1 % Basophils % 0 % Neutrophils # 11.9 H (1.3-7.7) k/uL Lymphocytes # 3.1 (1.0-4.8) k/uL Monocytes # 0.7 (0-1.0) k/uL Eosinophils # 0.2 (0-0.7) k/uL Basophils # 0.0 (0-0.2) k/uL PT 10.8 (9.0-12.0) sec INR 1.0 (<1.2) APTT 21.4 L (22.0-30.0) sec Sodium (137-145) mmol/L Potassium (3.5-5.1) mmol/L Chloride (98-107) mmol/L Carbon Dioxide (22-30) mmol/L Anion Gap mmol/L BUN (7-17) mg/dL Creatinine (0.52-1.04) mg/dL Est GFR (CKD-EPI)AfAm (>60 ml/min/1.73 sqM) Est GFR (CKD-EPI)NonAf (>60 ml/min/1.73 sqM) Glucose (74-99) mg/dL Calcium (8.4-10.2) mg/dL Total Bilirubin (0.2-1.3) mg/dL AST (14-36) U/L ALT (4-34) U/L Alkaline Phosphatase (38-126) U/L Total Protein (6.3-8.2) g/dL Albumin (3.5-5.0) g/dL HCG, Quant mIU/mL Blood Type A Positive Blood Type Recheck A Pos Bld Type Recheck Status No Antibody Screen NEGATIVE Spec Expiration Date 06/07/2023 - 234706/04/23 06/04/23 06/04/23 Range/Units 20:58 21:11 22:32 WBC 15.9 H (3.8-10.6) k/uL RBC 3.63 L (3.80-5.40) m/uL Hgb 10.5 L (11.4-16.0) gm/dL Hct 29.6 L (34.0-46.0) % MCV 81.7 (80.0-100.0) fL MCH 29.0 (25.0-35.0) pg MCHC 35.5 (31.0-37.0) g/dL RDW 13.5 (11.5-15.5) % Plt Count 219 (150-450) k/uL MPV 7.8 Neutrophils % 78 % Lymphocytes % 17 % Monocytes % 4 % Eosinophils % 1 % Basophils % 0 % Neutrophils # 12.4 H (1.3-7.7) k/uL Lymphocytes # 2.6 (1.0-4.8) k/uL Monocytes # 0.6 (0-1.0) k/uL Eosinophils # 0.2 (0-0.7) k/uL Basophils # 0.0 (0-0.2) k/uL PT (9.0-12.0) sec INR (<1.2) APTT (22.0-30.0) sec Sodium 135 L (137-145) mmol/L Potassium 3.7 (3.5-5.1) mmol/L Chloride 102 (98-107) mmol/L Carbon Dioxide 24 (22-30) mmol/L Anion Gap 9 mmol/L BUN 10 (7-17) mg/dL Creatinine 0.56 (0.52-1.04) mg/dL Est GFR (CKD-EPI)AfAm >90 (>60 ml/min/1.73 sqM) Est GFR (CKD-EPI)NonAf >90 (>60 ml/min/1.73 sqM) Glucose 105 H (74-99) mg/dL Calcium 9.0 (8.4-10.2) mg/dL Total Bilirubin 0.4 (0.2-1.3) mg/dL AST 20 (14-36) U/L ALT 17 (4-34) U/L Alkaline Phosphatase 77 (38-126) U/L Total Protein 6.8 (6.3-8.2) g/dL Albumin 3.6 (3.5-5.0) g/dL HCG, Quant 4150.9 mIU/mL Blood Type Blood Type Recheck Bld Type Recheck Status Antibody Screen Spec Expiration Date Disposition Clinical Impression: Spontaneous Disposition: ADMITTED IP TO THIS [facility] Condition: Stable Referrals: None,Stated [Primary Care Provider] - 1-2 days
[2023-06-04 21:27] LABS: Prothrombin Time 10.8 sec (9.0-12.0)
[2023-06-04 21:37] LABS: Partial Thromboplastin Time 21.4 sec (22.0-30.0)
[2023-06-04] MEDS ORDERED: SODIUM CHLORIDE 0.9% 1,000 ML IV STA (22:06)
[2023-06-04 22:40] LABS: Basophils % (A) 0 %; Eosinophils # (A) 0.2 k/uL (0-0.7); Eosinophils % (A) 1 %; HCT 29.6 % (34.0-46.0); HGB 10.5 gm/dL (11.4-16.0); Lymphocytes # (A) 2.6 k/uL (1.0-4.8); Lymphocytes % (A) 17 %; MCHC 35.5 g/dL (31.0-37.0); MCV 81.7 fL (80.0-100.0); Mean Platelet Volume 7.8; Monocytes # (A) 0.6 k/uL (0-1.0); Monocytes % (A) 4 %; Neutrophils # (A) 12.4 k/uL (1.3-7.7); Neutrophils % (A) 78 %; Platelet Count 219 k/uL (150-450); RBC 3.63 m/uL (3.80-5.40); RDW 13.5 % (11.5-15.5); WBC 15.9 k/uL (3.8-10.6)
--- NOTE | 2023-06-04 23:11 | US ---
EXAMINATION TYPE: Transabdominal DATE OF EXAM: 06/04/2023 9:53 PM COMPARISON: US 06/02/2023 CLINICAL INDICATION: Female, 28 years old with history of bleeding; Pt states heavy vaginal bleeding with large clots that started this AM EXAM PERFORMED: Transabdominal (TA) EXAM MEASUREMENTS: GESTATIONAL AGE / DATING Physician Established: Not yet established Dates by LMP: (10 weeks/6 days) EDC: 12/25/2023 Dates by First Scan: (10 weeks/2 days) EDC: 12/30/2023 Dates by Current Scan for: No IUP seen at this time MATERNAL ANATOMY Uterus: 13.2 x 5.4 x 6.5 cm Right Ovary: 2.1 x 2.4 x 2.2 cm Left Ovary: 2.6 x 2.1 x 1.4 cm Post CDS / Adnexa: wnl Presence of free fluid: No GESTATION / SURVEY IUP: No IUP seen at this time Beta HcG (if available): 06/02/2023= 10,494.4 06/04/2023= 4,150.9 Complex cystic area located within lower uterine segment= 6.7 x 3.1 x 2.9 cm/ No pole or yolk sac identified IMPRESSION: No intrauterine gestation identified at this time. There is a complex collection in low uterine segme nt. Impending Spontaneous .
[2023-06-04] MEDS ORDERED: ACETAMINOPHEN TAB 325 MG TAB PO PRN (23:31)
[2023-06-04] MEDS ORDERED: NALOXONE 0.4 MG/ML 1 ML VIAL IV PRN (23:31)
--- NOTE | 2023-06-04 23:45 | P.HPOB ---
History of Present Illness H&P Date: 06/04/23 Chief Complaint: vaginal bleeding 8-year-old presented to the emergency room complaining of heavy vaginal bleeding. She was diagnosed with a blighted ovum 2 days ago started having heavier bleeding today. Her hemoglobin 2 days ago was 13.8 and upon arrival here today was around 12, 2 hours later was 10.8. Lactate came to the bedside she had a clot in her vagina and her cervix is dilated but the products were sitting at the cervical os. I used a ring forcep and suctioned to remove the gestational sac. Her bleeding slowed. I'm going to admit the patient for o bservation overnight to make sure that her bleeding stays minimal. Review of Systems All systems: negative Constitutional: Denies chills, Denies fever Eyes: denies blurred vision, denies pain Ears, nose, mouth and throat: Denies headache, Denies sore throat Cardiovascular: Denies chest pain, Denies shortness of breath Respiratory: Denies cough Gastrointestinal: Denies abdominal pain, Denies diarrhea, Denies nausea, Denies vomiting Genitourinary: Denies dysuria, Denies hematuria Musculoskeletal: Denies myalgias Integumentary: Denies pruritus, Denies rash Neurological: Denies numbness, Denies weakness Psychiatric: Denies anxiety, Denies depression Endocrine: Denies fatigue, Denies weight change Past Medical History Past Medical History: No Reported History History of Any Multi-Drug Resistant Organisms: None Reported Past Surgical History: No Surgical Hx Reported Past Psychological History: ADD/ADHD Smoking Status: Former smoker Past Alcohol Use History: None Reported Past Drug Use History: None Reported Medications and Allergies Home Medications Medication Instructions Recorded Confirmed Type Acetaminophen Tab [Tylenol Tab] 1,000 mg PO Q6HR PRN #30 tablet 05/18/23 Rx Amoxic-Pot Clav 875-125Mg 1 tab PO Q12HR 10 Days #20 tab 05/18/23 Rx [Augmentin 875-125] Allergies Allergy/AdvReac Type Severity Reaction Status Date / Time amoxicillin Allergy Rash/Hives Verified 06/02/23 18:16 Exam Osteopathic Statement: *. No significant issues noted on an osteopathic structural exam other than those noted in the History and Physical/Consult. Vital Signs Temp Pulse Resp BP Pulse Ox 06/04/23 22:05 98 123/66 98 06/04/23 22:00 86 126/80 97 06/04/23 20:42 138/86 06/04/23 19:50 98.4 F 118 H 18 99 Intake and Output 06/04/23 06/04/23 06/05/23 14:59 22:59 06:59 Other: Voiding Method Toilet Weight 114.305 kg Heart: Regular rate and rhythm Lungs: Clear to auscultation bilaterally Abdomen: Soft, nontender Extremities: Negative Homans sign Results Result Diagrams: 06/04/23 22:32 06/04/23 20:58 Abnormal Lab Results - Last 24 Hours (Table) 06/04/23 06/04/23 06/04/23 Range/Units 20:58 20:58 20:58 WBC 16.0 H (3.8-10.6) k/uL RBC (3.80-5.40) m/uL Hgb (11.4-16.0) gm/dL Hct (34.0-46.0) % Neutrophils # 11.9 H (1.3-7.7) k/uL APTT 21.4 L (22.0-30.0) sec Sodium 135 L (137-145) mmol/L Glucose 105 H (74-99) mg/dL 06/04/23 Range/Units 22:32 WBC 15.9 H (3.8-10.6) k/uL RBC 3.63 L (3.80-5.40) m/uL Hgb 10.5 L (11.4-16.0) gm/dL Hct 29.6 L (34.0-46.0) % Neutrophils # 12.4 H (1.3-7.7) k/uL APTT (22.0-30.0) sec Sodium (137-145) mmol/L Glucose (74-99) mg/dL Assessment and Plan (1) Spontaneous Current Visit: Yes Status: Acute Code(s): O03.9 - COMPLETE OR UNSP SPONTANEOUS WITHOUT COMPLICATION SNOMED Code(s): 54634640 (2) Anemia due to acute blood loss Current Visit: Yes Status: Acute Code(s): D62 - ACUTE POSTHEMORRHAGIC ANEMIA SNOMED Code(s): 081982978 Plan: 1. clear liquids 2. monitor for bleeding 3. check cbc in am 4. methergine TID
[2023-06-04] MEDS: SODIUM CHLORIDE 0.9% 1,000 ML IV SCH (23:56)
[2023-06-04] MEDS: KETOROLAC 15 MG/ML 1 ML VIAL IVP PRN (23:56)
[2023-06-05] MEDS: KETOROLAC 15 MG/ML 1 ML VIAL IVP PRN (05:24)
[2023-06-05 07:32] LABS: Basophils % (A) 0 %; Eosinophils # (A) 0.2 k/uL (0-0.7); Eosinophils % (A) 2 %; HCT 25.7 % (34.0-46.0); HGB 8.6 gm/dL (11.4-16.0); Lymphocytes # (A) 3.3 k/uL (1.0-4.8); Lymphocytes % (A) 28 %; MCH 28.1 pg (25.0-35.0); MCHC 33.5 g/dL (31.0-37.0); MCV 83.8 fL (80.0-100.0); Mean Platelet Volume 8.2; Monocytes # (A) 0.6 k/uL (0-1.0); Monocytes % (A) 5 %; Neutrophils # (A) 7.6 k/uL (1.3-7.7); Neutrophils % (A) 64 %; Platelet Count 164 k/uL (150-450); RBC 3.07 m/uL (3.80-5.40); RDW 13.7 % (11.5-15.5); WBC 11.8 k/uL (3.8-10.6)
[2023-06-05] MEDS: SODIUM CHLORIDE 0.9% 1,000 ML IV SCH (07:51)
[2023-06-05 07:55] VITALS: BP 98/67; PULSE 82; TEMP 98.3
--- NOTE | 2023-06-05 09:00 | P.DS ---
Providers Date of admission: 06/04/23 23:36 Expected date of discharge: 06/05/23 Attending physician: Juliann Webster Primary care physician: Stated None - Discharge Diagnosis(es) (1) Spontaneous Current Visit: Yes Status: Acute (2) Anemia due to acute blood loss Current Visit: Yes Status: Acute Hospital Course: Patient presented to the emergency room with vaginal bleeding due to a spontaneous of a blighted ovum. We have activated the uterus in the emergency room and her bleeding resolved. Her hemoglobin did drop to 8.6. She denies nausea, vomiting, chest pain, shortness of breath, headache dizziness or calf pain. Her bleeding is now scant she is tolerating clear liquids. Patient will be discharged home today to follow-up with Dr. Saucedo next week. Patient Condition at Discharge: Stable Plan - Discharge Summary New Discharge Prescriptions: New Ibuprofen [Motrin] 600 mg PO Q6HR PRN #30 tab PRN Reason: Mild Pain Or Fever >= 100.5 No Action Amoxic-Pot Clav 875-125Mg [Augmentin 875-125] 1 tab PO Q12HR 10 Days #20 tab Acetaminophen Tab [Tylenol Tab] 1,000 mg PO Q6HR PRN #30 tablet PRN Reason: Pain Discharge Medication List Acetaminophen Tab [Tylenol Tab] 1,000 mg PO Q6HR PRN #30 tablet 05/18/23 [Rx] Amoxic-Pot Clav 875-125Mg [Augmentin 875-125] 1 tab PO Q12HR 10 Days #20 tab 05/18/23 [Rx] Ibuprofen [Motrin] 600 mg PO Q6HR PRN #30 tab 06/05/23 [Rx] Follow up Appointment(s)/Referral(s): None,Stated [Primary Care Provider] - 1-2 days Erin Saucedo DO [Doctor of Osteopathic Medicine] - 1 Week Discharge Disposition: HOME SELF-CARE
== END 2023-06-05 09:40 | disposition home or self-care (01) | DRG 779 ==
LOC: EC 19:24 → 4FBP 23:36
PROVIDERS: ADMIT Obstetrics & Gynecology; ATTEND Obstetrics & Gynecology
DX: O03.9 Complete or unspecified spontaneous abortion without complication (principal); D62 Acute posthemorrhagic anemia; O02.0 Blighted ovum and nonhydatidiform mole; F90.9 Attention-deficit hyperactivity disorder, unspecified type; Z3A.13 13 weeks gestation of pregnancy; O99.341 Other mental disorders complicating pregnancy, first trimester
CPT/HCPCS: 36415; 76801; 80053; 84702; 85025; 85610; 85730; 86850; 86900; 86901; 88305; 96361; 96374; 99285

== ENCOUNTER 2024-04-13 05:23 | Emergency (ER) | payer BC, OTHER ==
[2024-04-13 06:08] LABS: Appearance,Urine Clear (Clear); Bilirubin,Urine Negative (Negative); Blood,Urine Negative (Negative); Color,Urine Yellow; Glucose,Urine (UA) Negative (Negative); Ketones,Urine Negative (Negative); Leukocyte Esterase,Urine Negative (Negative); Nitrite,Urine Negative (Negative); Protein,Urine Trace (Negative); Specific Gravity,Urine 1.023 (1.001-1.035)
--- NOTE | 2024-04-13 06:53 | ED ---
Abdominal Pain HPI - General Chief Complaint: Nausea/Vomiting/Diarrhea Stated Complaint: Vomiting Time Seen by Provider: 04/13/24 06:21 Source: patient, RN notes reviewed Mode of arrival: ambulatory Limitations: no limitations - History of Present Illness Initial Comments: This is a 29-year-old female who presents to the emergency department for abdominal pain, nausea, and vomiting. States that over the last 2 weeks she has started to feel nauseous every morning. This begins with pain in the epigastric region before leading to nausea and vomiting. She has not yet had this evaluated. She was going to work this morning when her symptoms began to act up on her, and her boss requested she go to the emergency department for evaluation. Denies any changes in bowel habits. Denies any known issues with her gallbladder or any history of abdominal surgeries. MD Complaint: abdominal pain - Related Data Previous Rx's Medication Instructions Recorded Acetaminophen Tab [Tylenol Tab] 1,000 mg PO Q6HR PRN #30 tablet 05/18/23 Amoxic-Pot Clav 875-125Mg 1 tab PO Q12HR 10 Days #20 tab 05/18/23 [Augmentin 875-125] Ibuprofen [Motrin] 600 mg PO Q6HR PRN #30 tab 06/05/23 Ondansetron Odt [Zofran Odt] 4 mg PO Q8HR PRN #15 tab 04/13/24 Allergies Allergy/AdvReac Type Severity Reaction Status Date / Time amoxicillin Allergy Rash/Hives Verified 04/13/24 05:29 Review of Systems ROS Statement: Those systems with pertinent positive or pertinent negative responses have been documented in the HPI. ROS Other: All systems not noted in ROS Statement are negative. Past Medical History Past Medical History: No Reported History Additional Past Medical History / Comment(s): PIH with first History of Any Multi-Drug Resistant Organisms: None Reported Past Surgical History: No Surgical Hx Reported Past Anesthesia/Blood Transfusion Reactions: No Reported Reaction Past Psychological History: ADD/ADHD Smoking Status: Former smoker Past Alcohol Use History: None Reported Past Drug Use History: None Reported General Exam Limitations: no limitations General appearance: alert, in no apparent distress Head exam: Present: atraumatic, normocephalic, normal inspection Respiratory exam: Present: normal lung sounds bilaterally. Absent: respiratory distress, wheezes, rales, rhonchi, stridor Cardiovascular Exam: Present: regular rate, normal rhythm, normal heart sounds. Absent: systolic murmur, diastolic murmur, rubs, gallop, clicks GI/Abdominal exam: Present: soft, tenderness (Epigastric), normal bowel sounds. Absent: distended, guarding, rebound, rigid Neurological exam: Present: alert, oriented X3, CN II-XII intact Psychiatric exam: Present: normal affect, normal mood Skin exam: Present: warm, dry, intact, normal color. Absent: rash Course Vital Signs 04/13/24 04/13/24 04/13/24 05:26 07:17 10:00 Temperature 98 F Pulse Rate 83 80 60 Respiratory 18 20 20 Rate Blood Pressure 114/74 110/60 115/71 O2 Sat by Pulse 98 98 99 Oximetry 04/13/24 11:16 Temperature 98.2 F Pulse Rate 72 Respiratory 18 Rate Blood Pressure 116/70 O2 Sat by Pulse 99 Oximetry Medical Decision Making - Medical Decision Making This is a 29 year old female who presents to the emergency department for abdominal pain, nausea, and vomiting. Was pt. sent in by a medical professional or institution? @ -No Did you speak to anyone other than the patient for history? @ -No Did you review nursing and triage notes? @ -Yes, and I agree, it is accurate with regards to the patient's symptoms. Were old charts reviewed? @ -No Differential Diagnosis? @ -Differential Nausea and Vomiting: Gastroenteritis, cholecystitis, appendicitis, pancreatitis, migraine, benign positional vertigo, food borne illness, pyelonephritis, irritable bowel syndrome, influenza, Covid, GERD, incarcerated hernia, intestinal obstruction, this is not meant to be an all-inclusive list. EKG interpreted by me (3pts min.)? @ -Not obtained X-rays interpreted by me (1pt min.)? @ -Not obtained CT interpreted by me (1pt min.)? @ -Not obtained U/S interpreted by me (1pt. min.)? @ -Gallbladder ultrasound obtained. My interpretation identifies no evidence of gallbladder wall thickening. What testing was considered but not performed? (CT, X-rays, U/S, labs)? Why? @ -None What meds were considered but not given? Why? @ -None Did you discuss the management of the patient with other professionals? @ -No Did you reconcile home meds? @ -No Was smoking cessation discussed for >3mins.? @ -No Was critical care preformed (if so, how long)? @ -No Were there social determinants of health that impacted care today? How? (Homelessness, low income, unemployed, alcoholism, drug addiction, transportation, low edu. Level, literacy, decrease access to med. care, half-way, rehab)? @ -No Was there de-escalation of care discussed even if they declined? (Discuss DNR or withdrawal of care, Hospice)? @ -No What co-morbidities impacted this encounter? (DM, HTN, Smoking, COPD, CAD, Cancer, CVA, Hep., AIDS, mental health diagnosis, sleep apnea, morbid obesity)? @ -None Was patient admitted / discharged? @ -Discharged. Lab work demonstrates elevated LFTs with an AST of 527, ALT of 497, and alkaline phosphatase of 168. Bilirubin within normal limits. Gallbladder ultrasound obtained demonstrating fatty liver without other acute process. Patient treated with Toradol, IV fluids, and Zofran with improvement in symptoms. She was tolerating oral intake afterwards. Prescription for Zofran provided with dosing instructions reviewed. She is advised to slowly advance her diet as tolerated and remain well-hydrated. Also advised close follow-up with her primary care provider. Undiagnosed new problem with uncertain prognosis? @ -None Drug Therapy requiring intensive monitoring for toxicity (Heparin, Nitro, Insulin, Cardizem)? @ -None Were any procedures done? @ -None Diagnosis/symptom? @ -Nausea and vomiting, abdominal pain Acute, or Chronic, or Acute on Chronic? @ -Acute Uncomplicated (without systemic symptoms) or Complicated (systemic symptoms)? @ -Uncomplicated Side effects of treatment? @ -None Exacerbation, Progression, or Severe Exacerbation] @ -Not applicable Poses a threat to life or bodily function? @ -No Return precautions reviewed in depth, the patient is instructed to return to the emergency department with any new, worsening, or concerning symptoms. Patient verbalized understanding. This case was discussed in detail with the attending ED physician, Dr. Hoyos. Presentation, findings, and treatment plan discussed in detail as well. - Lab Data Result diagrams: 04/13/24 07:04 04/13/24 07:04 Lab Results 04/13/24 04/13/24 04/13/24 Range/Units 05:31 05:31 07:04 WBC 8.3 (3.8-10.6) k/uL RBC 5.27 (3.80-5.40) m/uL Hgb 13.5 (11.4-16.0) gm/dL Hct 43.1 (34.0-46.0) % MCV 81.8 (80.0-100.0) fL MCH 25.7 (25.0-35.0) pg MCHC 31.4 (31.0-37.0) g/dL RDW 15.2 (11.5-15.5) % Plt Count 148 L (150-450) k/uL MPV 8.0 Neutrophils % 57 % Lymphocytes % 25 % Monocytes % 8 % Eosinophils % 7 % Basophils % 1 % Neutrophils # 4.7 (1.3-7.7) k/uL Lymphocytes # 2.1 (1.0-4.8) k/uL Monocytes # 0.7 (0-1.0) k/uL Eosinophils # 0.6 (0-0.7) k/uL Basophils # 0.1 (0-0.2) k/uL Hypochromasia Slight Sodium (137-145) mmol/L Potassium (3.5-5.1) mmol/L Chloride (98-107) mmol/L Carbon Dioxide (22-30) mmol/L Anion Gap mmol/L BUN (7-17) mg/dL Creatinine (0.52-1.04) mg/dL Est GFR (CKD-EPI)AfAm (>60 ml/min/1.73 sqM) Est GFR (CKD-EPI)NonAf (>60 ml/min/1.73 sqM) Glucose (74-99) mg/dL Plasma Lactic Acid Sage (0.7-2.0) mmol/L Calcium (8.4-10.2) mg/dL Total Bilirubin (0.2-1.3) mg/dL AST (14-36) U/L ALT (4-34) U/L Alkaline Phosphatase (38-126) U/L Total Protein (6.3-8.2) g/dL Albumin (3.5-5.0) g/dL Amylase (30-110) U/L Lipase (23-300) U/L Urine Color Yellow Urine Appearance Clear (Clear) Urine pH 6.0 (5.0-8.0) Ur Specific [place] 1.023 (1.001-1.035) Urine Protein Trace H (Negative) Urine Glucose (UA) Negative (Negative) Urine Ketones Negative (Negative) Urine Blood Negative (Negative) Urine Nitrite Negative (Negative) Urine Bilirubin Negative (Negative) Urine Urobilinogen 6.0 (<2.0) mg/dL Ur Leukocyte Esterase Negative (Negative) Urine HCG, Qual Not Detected (Not Detectd) 04/13/24 04/13/24 Range/Units 07:04 07:04 WBC (3.8-10.6) k/uL RBC (3.80-5.40) m/uL Hgb (11.4-16.0) gm/dL Hct (34.0-46.0) % MCV (80.0-100.0) fL MCH (25.0-35.0) pg MCHC (31.0-37.0) g/dL RDW (11.5-15.5) % Plt Count (150-450) k/uL MPV Neutrophils % % Lymphocytes % % Monocytes % % Eosinophils % % Basophils % % Neutrophils # (1.3-7.7) k/uL Lymphocytes # (1.0-4.8) k/uL Monocytes # (0-1.0) k/uL Eosinophils # (0-0.7) k/uL Basophils # (0-0.2) k/uL Hypochromasia Sodium 139 (137-145) mmol/L Potassium 4.2 (3.5-5.1) mmol/L Chloride 110 H (98-107) mmol/L Carbon Dioxide 27 (22-30) mmol/L Anion Gap 2 mmol/L BUN 9 (7-17) mg/dL Creatinine 0.67 (0.52-1.04) mg/dL Est GFR (CKD-EPI)AfAm >90 (>60 ml/min/1.73 sqM) Est GFR (CKD-EPI)NonAf >90 (>60 ml/min/1.73 sqM) Glucose 95 (74-99) mg/dL Plasma Lactic Acid Sage 0.8 (0.7-2.0) mmol/L Calcium 9.0 (8.4-10.2) mg/dL Total Bilirubin 0.6 (0.2-1.3) mg/dL AST 527 H (14-36) U/L ALT 497 H (4-34) U/L Alkaline Phosphatase 168 H (38-126) U/L Total Protein 6.5 (6.3-8.2) g/dL Albumin 3.6 (3.5-5.0) g/dL Amylase 45 (30-110) U/L Lipase 73 (23-300) U/L Urine Color Urine Appearance (Clear) Urine pH (5.0-8.0) Ur Specific [place] (1.001-1.035) Urine Protein (Negative) Urine Glucose (UA) (Negative) Urine Ketones (Negative) Urine Blood (Negative) Urine Nitrite (Negative) Urine Bilirubin (Negative) Urine Urobilinogen (<2.0) mg/dL Ur Leukocyte Esterase (Negative) Urine HCG, Qual (Not Detectd) - Radiology Data Radiology results: report reviewed, image reviewed Disposition Clinical Impression: Abdominal pain, Nausea and vomiting Disposition: HOME SELF-CARE Instructions (If sedation given, give patient instructions): Acute Nausea and Vomiting (ED), Abdominal Pain (ED) Additional Instructions: Return to the emergency department with any new, worsening, or concerning symptoms. You can take the Zofran up to every 8 hours as needed for nausea and vomiting. Slowly advance your diet as tolerated and remain well-hydrated. Follow up with your primary care provider in 1-2 days. Prescriptions: Ondansetron Odt [Zofran Odt] 4 mg PO Q8HR PRN #15 tab PRN Reason: Nausea And Vomiting Is patient prescribed a controlled substance at d/c from ED?: No Referrals: None,Stated [Primary Care Provider] - 1-2 days Time of Disposition: 10:29
[2024-04-13] MEDS: SODIUM CHLORIDE 0.9% 1,000 ML IV STA (07:17)
[2024-04-13] MEDS: ONDANSETRON 4 MG/2 ML VIAL IVP STA (07:17)
[2024-04-13] MEDS: KETOROLAC 15 MG/ML 1 ML VIAL IVP STA (07:18)
[2024-04-13 07:26] LABS: Basophils # (A) 0.1 k/uL (0-0.2); Basophils % (A) 1 %; Eosinophils # (A) 0.6 k/uL (0-0.7); Eosinophils % (A) 7 %; HCT 43.1 % (34.0-46.0); HGB 13.5 gm/dL (11.4-16.0); Hypochromasia Slight; Lymphocytes # (A) 2.1 k/uL (1.0-4.8); Lymphocytes % (A) 25 %; MCH 25.7 pg (25.0-35.0); MCHC 31.4 g/dL (31.0-37.0); MCV 81.8 fL (80.0-100.0); Monocytes # (A) 0.7 k/uL (0-1.0); Monocytes % (A) 8 %; Neutrophils # (A) 4.7 k/uL (1.3-7.7); Neutrophils % (A) 57 %; Platelet Count 148 k/uL (150-450); RBC 5.27 m/uL (3.80-5.40); RDW 15.2 % (11.5-15.5); WBC 8.3 k/uL (3.8-10.6)
[2024-04-13 07:59] LABS: ALT 497 U/L (4-34); AST 527 U/L (14-36); African American GFR (CKD) >90 (>60 ml/min/1.73 sqM); Albumin 3.6 g/dL (3.5-5.0); Alkaline Phosphatase 168 U/L (38-126); Amylase 45 U/L (30-110); Anion Gap 2 mmol/L; Blood Urea Nitrogen 9 mg/dL (7-17); Carbon Dioxide 27 mmol/L (22-30); Chloride 110 mmol/L (98-107); Glucose 95 mg/dL (74-99); Lipase 73 U/L (23-300); Non-African American GFR(CKD) >90 (>60 ml/min/1.73 sqM); Potassium 4.2 mmol/L (3.5-5.1); Sodium 139 mmol/L (137-145); Total Bilirubin 0.6 mg/dL (0.2-1.3); Total Protein 6.5 g/dL (6.3-8.2)
--- NOTE | 2024-04-13 10:24 | US ---
EXAMINATION TYPE: US gallbladder DATE OF EXAM: 04/13/2024 COMPARISON: NONE CLINICAL INDICATION: Female, 29 years old with history of Epigastric pain; Epigastric pain and vomiti ng x 2 weeks TECHNIQUE: Multiple sonographic images of the right upper quadrant are obtained. FINDINGS: EXAM MEASUREMENTS: Liver Length: 16.5 cm Gallbladder Wall: 0.18 cm CBD: 0.4 cm Right Kidney: 10.6 x 4.8 x 4.1 cm RADIATION OFFICER NOTES: Pancreas: Parts seen appear wnl Liver: heterogeneous Gallbladder: wnl Evidence for sonographic Gardner's sign: No CBD: wnl Right Kidney: wnl IMPRESSION: Fatty liver.
[2024-04-13 11:17] VITALS: BP 116/70; PULSE 72; RESP 18; TEMP 98.2
== END 2024-04-13 11:15 | disposition home or self-care (01) ==
LOC: EC 05:23
DX: R11.2 Nausea with vomiting, unspecified (principal); R10.9 Unspecified abdominal pain; Z88.0 Allergy status to penicillin; Z87.891 Personal history of nicotine dependence
CPT/HCPCS: 36415; 80053; 82150; 83605; 83690; 85025; 81003; 81025; 76705; 99284; 96374; 96375; 96361 ×4; J2405; J1885

== ENCOUNTER 2024-09-22 12:14 | Emergency (ER) | payer BC ==
[2024-09-22 12:37] VITALS: BP 129/66; PULSE 82; RESP 18; TEMP 98.5
--- NOTE | 2024-09-22 13:12 | ED ---
General Adult HPI - General Chief complaint: Nausea/Vomiting/Diarrhea Stated complaint: Vomiting Time Seen by Provider: 09/22/24 12:45 Source: patient, RN notes reviewed, old records reviewed Mode of arrival: ambulatory Limitations: no limitations - History of Present Illness Initial comments: This is a 29-year-old female who presents to the emergency department stating that she just found out she was in the last 3 days she has been having nausea vomiting and unable to keep much down. Patient states she is not eating anything but has been trying to drink but has not been very successful. Patient denies any fever chills. Patient has any vaginal bleeding. Patient denies any abdominal pain. Patient denies any back pain. Patient denies any dysuria hematuria urinary frequency. - Related Data Previous Rx's Medication Instructions Recorded Acetaminophen Tab [Tylenol Tab] 1,000 mg PO Q6HR PRN #30 tablet 05/18/23 Amoxic-Pot Clav 875-125Mg 1 tab PO Q12HR 10 Days #20 tab 05/18/23 [Augmentin 875-125] Ibuprofen [Motrin] 600 mg PO Q6HR PRN #30 tab 06/05/23 Ondansetron Odt [Zofran Odt] 4 mg PO Q8HR PRN #15 tab 04/13/24 Ondansetron [Zofran] 4 mg PO Q8HR PRN #10 tab 09/22/24 Allergies Allergy/AdvReac Type Severity Reaction Status Date / Time amoxicillin Allergy Rash/Hives Verified 09/22/24 12:33 Review of Systems ROS Statement: Those systems with pertinent positive or pertinent negative responses have been documented in the HPI. ROS Other: All systems not noted in ROS Statement are negative. Past Medical History Past Medical History: No Reported History Additional Past Medical History / Comment(s): PIH with first History of Any Multi-Drug Resistant Organisms: None Reported Past Surgical History: No Surgical Hx Reported Past Anesthesia/Blood Transfusion Reactions: No Reported Reaction Past Psychological History: ADD/ADHD Smoking Status: Current every day smoker Past Alcohol Use History: None Reported Past Drug Use History: Marijuana General Exam - General Exam Comments Initial Comments: GENERAL: Patient is well-developed and well-nourished. Patient is nontoxic and well- hydrated and is in mild distress. ENT: Neck is soft and supple. No significant lymphadenopathy is noted. Oropharynx is clear. Dry mucous membranes. Neck has full range of motion without eliciting any pain. EYES: The sclera were anicteric and conjunctiva were pink and moist. Extraocular movements were intact and pupils were equal round and reactive to light. Eyelids were unremarkable. PULMONARY: Unlabored respirations. Good breath sounds bilaterally. No audible rales rhonchi or wheezing was noted. CARDIOVASCULAR: There is a regular rate and rhythm without any murmurs gallops or rubs. ABDOMEN: Soft and nontender with normal bowel sounds. SKIN: Skin is clear with no lesions or rashes and otherwise unremarkable. NEUROLOGIC: Patient is alert and oriented x3. Cranial nerves II through XII are grossly intact. Motor and sensory are also intact. Normal speech, volume and content. Symmetrical smile. MUSCULOSKELETAL: Normal extremities with adequate strength and full range of motion. LYMPHATICS: No significant lymphadenopathy is noted PSYCHIATRIC: Normal psychiatric evaluation. Limitations: no limitations Course Vital Signs 09/22/24 12:34 Temperature 98.5 F Pulse Rate 82 Respiratory 18 Rate Blood Pressure 129/66 O2 Sat by Pulse 98 Oximetry Medical Decision Making - Medical Decision Making Was pt. sent in by a medical professional or institution (, PA, POLYSOM TECH, urgent care, hospital, or snf...) When possible be specific @ -No Did you speak to anyone other than the patient for history (EMS, parent, family, police, friend...)? What history was obtained from this source @ -No Did you review nursing and triage notes (agree or disagree)? Why? @ -I reviewed and agree with nursing and triage notes Were old charts reviewed (outside hosp., previous admission, EMS record, old EKG, old radiological studies, urgent care reports/EKG's, snf records)? Report findings @ -No old charts were reviewed Differential Diagnosis? @ -Gastritis, viral syndrome, hyperemesis , EKG interpreted by me (3pts min.). @ -As above X-rays interpreted by me (1pt min.). @ -None done CT interpreted by me (1pt min.). @ -None done U/S interpreted by me (1pt. min.). @ -Ultrasound shows a 7-week intrauterine What testing was considered but not performed or refused? (CT, X-rays, U/S, labs)? Why? @ -None What meds were considered but not given or refused? Why? @ -None Did you discuss the management of the patient with other professionals (professionals i.e. , PA, POLYSOM TECH, lab, RT, psych nurse, perinatal social worker, water registrar, teacher, alumni relations officer, family service caseworker)? Give summary @ -No Was smoking cessation discussed for >3mins.? @ -No Was critical care preformed (if so, how long)? @ -No Were there social determinants of health that impacted care today? How? (Homelessness, low income, unemployed, alcoholism, drug addiction, transportation, low edu. Level, literacy, decrease access to med. care, [facility], rehab)? @ -No Was there de-escalation of care discussed even if they declined (Discuss DNR or withdrawal of care, Hospice)? DNR status @ -No What co-morbidities impacted this encounter? (DM, HTN, Smoking, COPD, CAD, Cancer, CVA, ARF, Chemo, Hep., AIDS, mental health diagnosis, sleep apnea, morbid obesity)? @ -None Was patient admitted / discharged? Hospital course, mention meds given and route, prescriptions, significant lab abnormalities, going to OR and other pertinent info. @ -Patient was given Zofran and fluids and felt considerably better. Patient has intrauterine . Patient had no abdominal pain at any time. Undiagnosed new problem with uncertain prognosis? @ -No Drug Therapy requiring intensive monitoring for toxicity (Heparin, Nitro, Insulin, Cardizem)? @ -No Were any procedures done? @ -No Diagnosis/symptom? @ -Acute vomiting in Acute, or Chronic, or Acute on Chronic? @ -Acute Uncomplicated (without systemic symptoms) or Complicated (systemic symptoms)? @ -Complicated Side effects of treatment? @ -No Exacerbation, Progression, or Severe Exacerbation? @ -No Poses a threat to life or bodily function? How? (Chest pain, USA, VT, pneumonia, PE, COPD, DKA, ARF, appy, cholecystitis, CVA, Diverticulitis, Homicidal, Suicidal, threat to staff... and all critical care pts) @ -No - Lab Data Result diagrams: 09/22/24 13:09 09/22/24 13:09 Lab Results 09/22/24 09/22/24 Range/Units 13:09 13:09 WBC 8.8 (3.8-10.6) k/uL RBC 5.12 (3.80-5.40) m/uL Hgb 13.9 (11.4-16.0) gm/dL Hct 41.1 (34.0-46.0) % MCV 80.3 (80.0-100.0) fL MCH 27.1 (25.0-35.0) pg MCHC 33.7 (31.0-37.0) g/dL RDW 13.9 (11.5-15.5) % Plt Count 195 (150-450) k/uL MPV 8.1 Neutrophils % 67 % Lymphocytes % 26 % Monocytes % 5 % Eosinophils % 1 % Basophils % 0 % Neutrophils # 5.8 (1.3-7.7) k/uL Lymphocytes # 2.2 (1.0-4.8) k/uL Monocytes # 0.4 (0-1.0) k/uL Eosinophils # 0.1 (0-0.7) k/uL Basophils # 0.0 (0-0.2) k/uL Sodium 137 (137-145) mmol/L Potassium 3.9 (3.5-5.1) mmol/L Chloride 105 (98-107) mmol/L Carbon Dioxide 22 (22-30) mmol/L Anion Gap 10 mmol/L BUN 5 L (7-17) mg/dL Creatinine 0.59 (0.52-1.04) mg/dL Est GFR (CKD-EPI)AfAm >90 (>60 ml/min/1.73 sqM) Est GFR (CKD-EPI)NonAf >90 (>60 ml/min/1.73 sqM) Glucose 95 (74-99) mg/dL Calcium 9.5 (8.4-10.2) mg/dL Total Bilirubin 0.7 (0.2-1.3) mg/dL AST 30 (14-36) U/L ALT 38 H (4-34) U/L Alkaline Phosphatase 91 (38-126) U/L Total Protein 7.8 (6.3-8.2) g/dL Albumin 4.4 (3.5-5.0) g/dL Amylase 33 (30-110) U/L Lipase 39 (23-300) U/L HCG, Quant 28497.4 mIU/mL Disposition Clinical Impression: Vomiting Disposition: HOME SELF-CARE Condition: Good Instructions (If sedation given, give patient instructions): Acute Nausea and Vomiting (ED) Prescriptions: Ondansetron [Zofran] 4 mg PO Q8HR PRN #10 tab PRN Reason: Nausea And Vomiting Is patient prescribed a controlled substance at d/c from ED?: No Referrals: None,Stated [Primary Care Provider] - 1-2 days Time of Disposition: 15:13
[2024-09-22] MEDS: SODIUM CHLORIDE 0.9% 1,000 ML IV STA (13:30)
[2024-09-22] MEDS: ONDANSETRON 4 MG/2 ML VIAL IVP STA (13:30)
[2024-09-22 13:54] LABS: Basophils % (A) 0 %; Eosinophils # (A) 0.1 k/uL (0-0.7); Eosinophils % (A) 1 %; HCT 41.1 % (34.0-46.0); HGB 13.9 gm/dL (11.4-16.0); Lymphocytes # (A) 2.2 k/uL (1.0-4.8); Lymphocytes % (A) 26 %; MCH 27.1 pg (25.0-35.0); MCHC 33.7 g/dL (31.0-37.0); MCV 80.3 fL (80.0-100.0); Mean Platelet Volume 8.1; Monocytes # (A) 0.4 k/uL (0-1.0); Monocytes % (A) 5 %; Neutrophils # (A) 5.8 k/uL (1.3-7.7); Neutrophils % (A) 67 %; Platelet Count 195 k/uL (150-450); RBC 5.12 m/uL (3.80-5.40); RDW 13.9 % (11.5-15.5); WBC 8.8 k/uL (3.8-10.6)
[2024-09-22 14:08] LABS: ALT 38 U/L (4-34); AST 30 U/L (14-36); African American GFR (CKD) >90 (>60 ml/min/1.73 sqM); Albumin 4.4 g/dL (3.5-5.0); Alkaline Phosphatase 91 U/L (38-126); Amylase 33 U/L (30-110); Anion Gap 10 mmol/L; Blood Urea Nitrogen 5 mg/dL (7-17); Calcium 9.5 mg/dL (8.4-10.2); Carbon Dioxide 22 mmol/L (22-30); Chloride 105 mmol/L (98-107); Glucose 95 mg/dL (74-99); Lipase 39 U/L (23-300); Non-African American GFR(CKD) >90 (>60 ml/min/1.73 sqM); Potassium 3.9 mmol/L (3.5-5.1); Sodium 137 mmol/L (137-145); Total Bilirubin 0.7 mg/dL (0.2-1.3); Total Protein 7.8 g/dL (6.3-8.2)
--- NOTE | 2024-09-22 14:27 | US ---
EXAMINATION TYPE: Transabdominal DATE OF EXAM: 09/22/2024 2:14 PM COMPARISON: Previous ultrasound study 06/04/2023. CLINICAL INDICATION: Female, 29 years old with history of Abdominal pain, ; N/V x 5 days LMP 08/21/24 TECHNIQUE: Transabdominal (TA) with grayscale and color Doppler imaging including first trimester pre gnancy. FINDINGS: EXAM MEASUREMENTS: GESTATIONAL AGE / DATING Physician Established: Not yet established Dates by LMP: 08/21/24 (4 weeks/4 days) EDC: 05/28/25 Dates by First Scan: No previous this is first scan Dates by Current Scan for: (7 weeks/0 days) EDC: 05/11/25 MATERNAL ANATOMY Uterus: 9.3 x 7.5 x 7.4 cm Right Ovary: 3.9 x 1.9 x 2.3 cm Left Ovary: 2.8 x 1.5 x 2.0 cm Post CDS / Adnexa: wnl Presence of free fluid: no Presence of corpus luteal cyst: no Presence of subchorionic bleed: no GESTATION / SURVEY CRL: 0.90cm (7 weeks/0 days) Gestational Sac morphology: Normal Gestational Sac MSD: 1.99cm (7 weeks/0 days) Yolk Sac (normal less than 6mm): 0.24 cm Heart Rate: 115 bpm Rhythm: Normal IUP: Viable IUP Date of LMP: 08/21/24 Beta HcG (if available): Not available at this time IMPRESSION: 1. Single live intrauterine with estimated gestational age of 7 weeks 0 days. [facility], , 09/22/2024 2:25 PM
[2024-09-22 15:08] LABS: HCG,Quantitative Serum 58929.4 mIU/mL
== END 2024-09-22 15:00 | disposition home or self-care (01) ==
LOC: EC 12:14
DX: O21.9 Vomiting of pregnancy, unspecified (principal); O99.331 Smoking (tobacco) complicating pregnancy, first trimester; F17.200 Nicotine dependence, unspecified, uncomplicated; Z88.1 Allergy status to other antibiotic agents; Z3A.01 Less than 8 weeks gestation of pregnancy
CPT/HCPCS: 36415; 80053; 82150; 83690; 85025; 84702; 76801; 99284; 96374; 96361; J2405

== ENCOUNTER 2024-10-10 16:30 | Emergency (ER) | payer BC, OTHER ==
[2024-10-10 16:49] VITALS: RESP 18; TEMP 98.4
[2024-10-10 17:41] LABS: Basophils % (A) 0 %; Eosinophils # (A) 0.2 k/uL (0-0.7); Eosinophils % (A) 2 %; HCT 39.5 % (34.0-46.0); HGB 13.3 gm/dL (11.4-16.0); Lymphocytes # (A) 2.3 k/uL (1.0-4.8); Lymphocytes % (A) 22 %; MCH 27.4 pg (25.0-35.0); MCHC 33.7 g/dL (31.0-37.0); MCV 81.5 fL (80.0-100.0); Mean Platelet Volume 7.1; Monocytes # (A) 0.3 k/uL (0-1.0); Monocytes % (A) 3 %; Neutrophils # (A) 7.3 k/uL (1.3-7.7); Neutrophils % (A) 71 %; Platelet Count 231 k/uL (150-450); RBC 4.85 m/uL (3.80-5.40); RDW 14.4 % (11.5-15.5); WBC 10.2 k/uL (3.8-10.6)
[2024-10-10 17:44] LABS: Appearance,Urine Clear (Clear); Bilirubin,Urine Negative (Negative); Blood,Urine Negative (Negative); Color,Urine Light Yellow; Glucose,Urine (UA) Negative (Negative); Ketones,Urine Negative (Negative); Leukocyte Esterase,Urine Negative (Negative); Nitrite,Urine Negative (Negative); Protein,Urine Negative (Negative); Specific Gravity,Urine 1.024 (1.001-1.035); Urobilinogen,Urine <2.0 mg/dL (<2.0)
[2024-10-10] MEDS: SODIUM CHLORIDE 0.9% 1,000 ML IV ONE (17:45)
[2024-10-10] MEDS: ACETAMINOPHEN TAB 500 MG TAB PO STA (17:46)
[2024-10-10 17:51] LABS: ALT 45 U/L (4-34); AST 32 U/L (14-36); African American GFR (CKD) >90 (>60 ml/min/1.73 sqM); Albumin 4.3 g/dL (3.5-5.0); Alkaline Phosphatase 81 U/L (38-126); Anion Gap 6 mmol/L; Blood Urea Nitrogen 6 mg/dL (7-17); Calcium 9.4 mg/dL (8.4-10.2); Carbon Dioxide 25 mmol/L (22-30); Chloride 103 mmol/L (98-107); Glucose 91 mg/dL (74-99); Non-African American GFR(CKD) >90 (>60 ml/min/1.73 sqM); Potassium 3.7 mmol/L (3.5-5.1); Sodium 134 mmol/L (137-145); Total Bilirubin 0.3 mg/dL (0.2-1.3); Total Protein 7.4 g/dL (6.3-8.2)
[2024-10-10 19:01] VITALS: BP 131/86; PULSE 81
--- NOTE | 2024-10-10 19:24 | US ---
EXAMINATION TYPE: Transabdominal DATE OF EXAM: 10/10/2024 6:50 PM COMPARISON: NONE CLINICAL INDICATION: Female, 29 years old with history of pain; Patient states left sided pain. Patie nt unsure of ROSALINE and last period, states periods are irregular TECHNIQUE: Transabdominal (TA) with grayscale and color Doppler imaging including first trimester pre gnancy. FINDINGS: EXAM MEASUREMENTS: GESTATIONAL AGE / DATING Physician Established: Not yet established Dates by LMP: LMP unknown Dates by First Scan: (9 weeks/4 days) EDC: 05/11/2025 Dates by Current Scan for: (9 weeks/3 days) EDC: 05/12/2025 MATERNAL ANATOMY Uterus: 10.9 x 5.9 x 8.1cm Right Ovary: 1.9 x 1.5 x 2.8cm Left Ovary: 2.6 x 1.6 x 2.0cm Post CDS / Adnexa: wnl Presence of free fluid: no Presence of corpus luteal cyst: no Presence of subchorionic bleed: There is a small 1.7 x 0.6 x 1.1cm anechoic area seen to the right of the GS. GESTATION / SURVEY CRL: 2.67cm (9 weeks/3 days) Gestational Sac morphology: Normal ?? low lying gestational sac Yolk Sac (normal less than 6mm): 4mm Heart Rate: 163 bpm Rhythm: Normal IUP: Viable IUP Date of LMP: Irregular periods Beta HcG (if available): Not available at this time IMPRESSION: 1. Single intrauterine gestation estimated at 9 weeks 3 days gestation based on crown-rump length. Ca rdiac activity measures 163 bpm. 2. There appears to be a 1.7 x 0.6 x 1.1 cm subchorionic hemorrhage present [facility], , 10/10/2024 7:22 PM
--- NOTE | 2024-10-10 19:40 | ED ---
Abdominal Pain HPI - General Chief Complaint: Abdominal Pain Stated Complaint: 11 wks preg, tooth issue Time Seen by Provider: 10/10/24 16:58 Source: patient Mode of arrival: ambulatory Limitations: no limitations - History of Present Illness Initial Comments: 29-year-old female currently 11 weeks presenting with chief complaint of dental pain. Patient is having pain to the right upper side. She has a fractured tooth and is unable to get into the dentist until November 05 when she gets approval from her TOOL STORAGE ATTENDANT. She is also having some left-sided pelvic pain. This has been ongoing for several days. No vaginal bleeding. No dysuria or hematuria. No fevers or chills. No nausea or vomiting. No difficulty breathing or swallowing. No trismus. No neck pain. - Related Data Previous Rx's Medication Instructions Recorded Acetaminophen Tab [Tylenol Tab] 1,000 mg PO Q6HR PRN #30 tablet 05/18/23 Amoxic-Pot Clav 875-125Mg 1 tab PO Q12HR 10 Days #20 tab 05/18/23 [Augmentin 875-125] Ibuprofen [Motrin] 600 mg PO Q6HR PRN #30 tab 06/05/23 Ondansetron Odt [Zofran Odt] 4 mg PO Q8HR PRN #15 tab 04/13/24 Ondansetron [Zofran] 4 mg PO Q8HR PRN #10 tab 09/22/24 Amoxic-Pot Clav 875-125Mg 1 tab PO Q12HR 7 Days #14 tab 10/10/24 [Augmentin 875-125] Allergies Allergy/AdvReac Type Severity Reaction Status Date / Time amoxicillin Allergy Rash/Hives Verified 10/10/24 16:45 Review of Systems ROS Statement: Those systems with pertinent positive or pertinent negative responses have been documented in the HPI. ROS Other: All systems not noted in ROS Statement are negative. Past Medical History Past Medical History: No Reported History Additional Past Medical History / Comment(s): PIH with first History of Any Multi-Drug Resistant Organisms: None Reported Past Surgical History: No Surgical Hx Reported Past Anesthesia/Blood Transfusion Reactions: No Reported Reaction Past Psychological History: ADD/ADHD Smoking Status: Current every day smoker Past Alcohol Use History: None Reported Past Drug Use History: Marijuana General Exam Limitations: no limitations General appearance: alert, in no apparent distress Head exam: Present: atraumatic, normocephalic, normal inspection Eye exam: Present: normal appearance, EOMI ENT exam: Present: mucous membranes moist Expanded Mouth exam: Present: normal external inspection, tongue normal. Absent: rylee oling, trismus, muffled voice Teeth exam: Present: dental caries, fractured tooth # Throat exam: normal inspection. negative: tonsillomegaly Neck exam: Present: normal inspection. Absent: meningismus Respiratory exam: Present: normal lung sounds bilaterally. Absent: respiratory distress, wheezes, rales, rhonchi, stridor Cardiovascular Exam: Present: regular rate, normal rhythm, normal heart sounds. Absent: systolic murmur, diastolic murmur, rubs, gallop, clicks GI/Abdominal exam: Present: soft. Absent: distended, tenderness, guarding, rebo und, rigid Neurological exam: Present: alert, oriented X3 Psychiatric exam: Present: normal affect, normal mood Skin exam: Present: warm, dry Course Vital Signs 10/10/24 10/10/24 16:45 19:00 Temperature 98.4 F 98.4 F Pulse Rate 84 81 Respiratory 18 18 Rate Blood Pressure 135/84 131/86 O2 Sat by Pulse 99 98 Oximetry Medical Decision Making - Medical Decision Making Was pt. sent in by a medical professional or institution (Dr. PA, STOCK RAISER, urgent care, hospital, or halfway...) When possible be specific @ -No Did you speak to anyone other than the patient for history (EMS, parent, family, police, friend...)? What history was obtained from this source @ -No Did you review nursing and triage notes (agree or disagree)? Why? @ -I reviewed and agree with nursing and triage notes Were old charts reviewed (outside hosp., previous admission, EMS record, old EKG, old radiological studies, urgent care reports/EKG's, halfway records)? Report findings @ -No old charts were reviewed Differential Diagnosis (chest pain, altered mental status, abdominal pain women, abdominal pain men, vaginal bleeding, weakness, fever, dyspnea, syncope, headache, dizziness, GI bleed, back pain, seizure, CVA, palpatations, mental health, musculoskeletal)? @ -MDM Differential Abdominal Pain Women: Appendicitis, Cholecystitis, diverticulosis, ischemic bowel, pancreatitis, hepatitis, UTI, gastroenteritis, AAA, incarcerated hernia, bowel obstruction, constipation, inflammatory bowel, hepatitis, peptic ulcer disease, splenic infarction, perforated viscus, vulvitis, ovarian torsion, PID, kidney stone, placenta abruption... This is not meant to be an all-inclusive list EKG interpreted by me (3pts min.). @ -As above X-rays interpreted by me (1pt min.). @ -None done CT interpreted by me (1pt min.). @ -None done U/S interpreted by me (1pt. min.). @ -Ultrasound shows single intrauterine gestation estimated at 9 weeks 3 days gestation based on crown-rump length. Cardiac activity measures 163 bpm. There is a 1.7 x 0.6 x 1.1 cm subchorionic hemorrhage present What testing was considered but not performed or refused? (CT, X-rays, U/S, labs)? Why? @ -None What meds were considered but not given or refused? Why? @ -None Did you discuss the management of the patient with other professionals (pro fessionals i.e. , PA, STOCK RAISER, lab, RT, psych nurse, social sciences chair, gastroenterologist, teacher, fisheries enforcement officer, behavioral health case manager)? Give summary @ -No Was smoking cessation discussed for >3mins.? @ -No Was critical care preformed (if so, how long)? @ -No Were there social determinants of health that impacted care today? How? (Homelessness, low income, unemployed, alcoholism, drug addiction, transportation, low edu. Level, literacy, decrease access to med. care, fci, rehab)? @ -No Was there de-escalation of care discussed even if they declined (Discuss DNR or withdrawal of care, Hospice)? DNR status @ -No What co-morbidities impacted this encounter? (DM, HTN, Smoking, COPD, CAD, Cancer, CVA, ARF, Chemo, Hep., AIDS, mental health diagnosis, sleep apnea, morbid obesity)? @ -None Was patient admitted / discharged? Hospital course, mention meds given and route, prescriptions, significant lab abnormalities, going to OR and other pertinent info. @ -29-year-old female presenting with chief complaint of dental pain. Patient is also 9 weeks and is complaining of some left-sided pelvic pain. On physical examination there are some dental caries and a fractured tooth noted. Patient will be treated with Augmentin, she has tolerated this in the past. No leukocytosis or anemia. hCG 129,033. Urine shows no infectious process or bleeding. Ultrasound shows single live IUP. There is also a small subchorionic hemorrhage present. Patient is educated on today's findings. She will follow-up with her TOOL STORAGE ATTENDANT at her scheduled appointment. Provided with order for repeat hCG in 48 hours. Discharged. Follow-up with PCP. Report back to ER with any new or worsening symptoms. Discussed return parameters and answered all questions. Patient conveyed verbal understanding and agreed to the plan. I discussed this case in detail with my attending Dr. Hoyos Undiagnosed new problem with uncertain prognosis? @ -No Drug Therapy requiring intensive monitoring for toxicity (Heparin, Nitro, Insulin, Cardizem)? @ -No Were any procedures done? @ -No Diagnosis/symptom? @ -Threatened miscarriage, toothache Acute, or Chronic, or Acute on Chronic? @ -Acute Uncomplicated (without systemic symptoms) or Complicated (systemic symptoms)? @ -Uncomplicated Side effects of treatment? @ -No Exacerbation, Progression, or Severe Exacerbation? @ -No Poses a threat to life or bodily function? How? (Chest pain, [place], [place], pneumonia, PE, COPD, DKA, ARF, appy, cholecystitis, CVA, Diverticulitis, Homicidal, Suicidal, threat to staff... and all critical care pts) @ -Threatened miscarriage indicate some potential threat to the - Lab Data Result diagrams: 10/10/24 17:27 10/10/24 17:27 Lab Results 10/10/24 10/10/24 10/10/24 Range/Units 17:27 17:27 17:27 WBC 10.2 (3.8-10.6) k/uL RBC 4.85 (3.80-5.40) m/uL Hgb 13.3 (11.4-16.0) gm/dL Hct 39.5 (34.0-46.0) % MCV 81.5 (80.0-100.0) fL MCH 27.4 (25.0-35.0) pg MCHC 33.7 (31.0-37.0) g/dL RDW 14.4 (11.5-15.5) % Plt Count 231 (150-450) k/uL MPV 7.1 Neutrophils % 71 % Lymphocytes % 22 % Monocytes % 3 % Eosinophils % 2 % Basophils % 0 % Neutrophils # 7.3 (1.3-7.7) k/uL Lymphocytes # 2.3 (1.0-4.8) k/uL Monocytes # 0.3 (0-1.0) k/uL Eosinophils # 0.2 (0-0.7) k/uL Basophils # 0.0 (0-0.2) k/uL Sodium 134 L (137-145) mmol/L Potassium 3.7 (3.5-5.1) mmol/L Chloride 103 (98-107) mmol/L Carbon Dioxide 25 (22-30) mmol/L Anion Gap 6 mmol/L BUN 6 L (7-17) mg/dL Creatinine 0.54 (0.52-1.04) mg/dL Est GFR (CKD-EPI)AfAm >90 (>60 ml/min/1.73 sqM) Est GFR (CKD-EPI)NonAf >90 (>60 ml/min/1.73 sqM) Glucose 91 (74-99) mg/dL Calcium 9.4 (8.4-10.2) mg/dL Total Bilirubin 0.3 (0.2-1.3) mg/dL AST 32 (14-36) U/L ALT 45 H (4-34) U/L Alkaline Phosphatase 81 (38-126) U/L Total Protein 7.4 (6.3-8.2) g/dL Albumin 4.3 (3.5-5.0) g/dL HCG, Quant 994619.0 mIU/mL Urine Color Light Yellow Urine Appearance Clear (Clear) Urine pH 5.0 (5.0-8.0) Ur Specific [place] 1.024 (1.001-1.035) Urine Protein Negative (Negative) Urine Glucose (UA) Negative (Negative) Urine Ketones Negative (Negative) Urine Blood Negative (Negative) Urine Nitrite Negative (Negative) Urine Bilirubin Negative (Negative) Urine Urobilinogen <2.0 (<2.0) mg/dL Ur Leukocyte Esterase Negative (Negative) Disposition Clinical Impression: Threatened miscarriage, Toothache Disposition: HOME SELF-CARE Condition: Good Instructions (If sedation given, give patient instructions): Threatened Miscarriage (ED), Toothache (ED) Additional Instructions: Follow-up with your TOOL STORAGE ATTENDANT and dentist. Report back to ER with any new or worsening symptoms. Take medication as prescribed. Prescriptions: Amoxic-Pot Clav 875-125Mg [Augmentin 875-125] 1 tab PO Q12HR 7 Days #14 tab Is patient prescribed a controlled substance at d/c from ED?: No Referrals: None,Stated [Primary Care Provider] - 1-2 days Juliann Webster DO [Doctor of Osteopathic Medicine] - 1-2 days Time of Disposition: 19:40
== END 2024-10-10 19:56 | disposition home or self-care (01) ==
LOC: EC 16:30
DX: O20.0 Threatened abortion (principal); K08.89 Other specified disorders of teeth and supporting structures; F17.200 Nicotine dependence, unspecified, uncomplicated; Z88.8 Allergy status to other drugs, medicaments and biological substances
CPT/HCPCS: 36415; 76801; 80053; 81003; 84702; 85025; 96360; 99284

== ENCOUNTER → 2024-10-12 | Outpatient (CLI) | payer BC, OTHER | END | disposition home or self-care (01) | LOC: LABWHC1 13:17 | PROVIDERS: ATTEND Physician Assistant | DX: O20.0 Threatened abortion (principal) | CPT/HCPCS: 36415; 84702 ==

== ENCOUNTER 2024-10-16 11:25 | Emergency (ER) | payer BC, OTHER ==
[2024-10-16 11:34] VITALS: RESP 16
--- NOTE | 2024-10-16 12:43 | XR ---
EXAMINATION TYPE: XR femur RT DATE OF EXAM: 10/16/2024 12:23 PM COMPARISON: 10/16/2024 CLINICAL INDICATION: Female, 29 years old with history of pain, pain TECHNIQUE: XR femur RT examined in Frontal and lateral projections. FINDINGS: No evidence of acute osseous pathology, joint dislocation, or soft tissue swelling. Minima l osteophyte formations of the superior acetabulum as well as the tibial plateau and patella to a les ser extent. Joint spaces appear within normal limits IMPRESSION: 1. No acute osseous pathology. 2. Minimal degeneration changes of the hip and right knee. [facility], , 10/16/2024 12:41 PM
[2024-10-16] MEDS: ACETAMINOPHEN TAB 500 MG TAB PO STA (12:51)
--- NOTE | 2024-10-16 13:12 | ED ---
General Adult HPI - General Chief complaint: Extremity Injury, Lower Stated complaint: Fell-R leg injury(11 weeks preg) Time Seen by Provider: 10/16/24 11:37 Source: patient, RN notes reviewed Mode of arrival: ambulatory Limitations: no limitations - History of Present Illness Initial comments: 29-year-old female presents emergency department chief complaint of fall onto her right side. Patient complains of right leg pain. Patient states that she slipped on some wooden steps. Patient denies any head injury. She states she is 11 weeks is concerned about her baby. She has minimal abdominal pain no vaginal bleeding or vaginal discharge. - Related Data Previous Rx's Medication Instructions Recorded Acetaminophen Tab [Tylenol Tab] 1,000 mg PO Q6HR PRN #30 tablet 05/18/23 Amoxic-Pot Clav 875-125Mg 1 tab PO Q12HR 10 Days #20 tab 05/18/23 [Augmentin 875-125] Ibuprofen [Motrin] 600 mg PO Q6HR PRN #30 tab 06/05/23 Ondansetron Odt [Zofran Odt] 4 mg PO Q8HR PRN #15 tab 04/13/24 Ondansetron [Zofran] 4 mg PO Q8HR PRN #10 tab 09/22/24 Amoxic-Pot Clav 875-125Mg 1 tab PO Q12HR 7 Days #14 tab 10/10/24 [Augmentin 875-125] Allergies Allergy/AdvReac Type Severity Reaction Status Date / Time amoxicillin Allergy Rash/Hives Verified 10/16/24 11:33 Review of Systems ROS Statement: Those systems with pertinent positive or pertinent negative responses have been documented in the HPI. ROS Other: All systems not noted in ROS Statement are negative. Past Medical History Past Medical History: No Reported History Additional Past Medical History / Comment(s): PIH with first History of Any Multi-Drug Resistant Organisms: None Reported Past Surgical History: No Surgical Hx Reported Past Anesthesia/Blood Transfusion Reactions: No Reported Reaction Past Psychological History: ADD/ADHD Smoking Status: Current every day smoker Past Alcohol Use History: None Reported Past Drug Use History: Marijuana General Exam Limitations: no limitations General appearance: alert, in no apparent distress Head exam: Present: atraumatic, normocephalic, normal inspection Eye exam: Present: normal appearance, PERRL, EOMI. Absent: scleral icterus, conjunctival injection, periorbital swelling ENT exam: Present: normal exam, mucous membranes moist Neck exam: Present: normal inspection, full ROM. Absent: tenderness, meningismus, lymphadenopathy Respiratory exam: Present: normal lung sounds bilaterally. Absent: respiratory distress, wheezes, rales, rhonchi, stridor Cardiovascular Exam: Present: regular rate, normal rhythm, normal heart sounds. Absent: systolic murmur, diastolic murmur, rubs, gallop, clicks GI/Abdominal exam: Present: soft, normal bowel sounds. Absent: distended, tenderness, guarding, rebound, rigid Extremities exam: Present: other (Right thigh tenderness diffuse, neurovascular intact) Course Vital Signs 10/16/24 11:30 Temperature 98.4 F Pulse Rate 89 Respiratory 16 Rate Blood Pressure 123/75 O2 Sat by Pulse 100 Oximetry Medical Decision Making - Medical Decision Making Was pt. sent in by a medical professional or institution (, PA, NATURAL GAS SHOTHOLE DRILLER, urgent care, hospital, or residential...) When possible be specific @ -No Did you speak to anyone other than the patient for history (EMS, parent, family, police, friend...)? What history was obtained from this source @ -No Did you review nursing and triage notes (agree or disagree)? Why? @ -I reviewed and agree with nursing and triage notes Were old charts reviewed (outside hosp., previous admission, EMS record, old EKG, old radiological studies, urgent care reports/EKG's, residential records)? Report findings @ -No old charts were reviewed Differential Diagnosis (chest pain, altered mental status, abdominal pain women, abdominal pain men, vaginal bleeding, weakness, fever, dyspnea, syncope, headache, dizziness, GI bleed, back pain, seizure, CVA, palpatations, mental health, musculoskeletal)? @ -Fall, leg contusion, leg fracture EKG interpreted by me (3pts min.). @ -None X-rays interpreted by me (1pt min.). @ -The right femur no acute fracture CT interpreted by me (1pt min.). @ -None done U/S interpreted by me (1pt. min.). @ -Ultrasound heart tones Limited OB showing heart rate of 175 What testing was considered but not performed or refused? (CT, X-rays, U/S, labs)? Why? @ -None What meds were considered but not given or refused? Why? @ -None Did you discuss the management of the patient with other professionals (professionals i.e. , PA, NATURAL GAS SHOTHOLE DRILLER, lab, RT, psych nurse, social media job titles, aesthetician, teacher, correction officer supervisor, case folder)? Give summary @ -No Was smoking cessation discussed for >3mins.? @ -No Was critical care preformed (if so, how long)? @ -No Were there social determinants of health that impacted care today? How? (Homelessness, low income, unemployed, alcoholism, drug addiction, transportation, low edu. Level, literacy, decrease access to med. care, skilled nursing, rehab)? @ -No Was there de-escalation of care discussed even if they declined (Discuss DNR or withdrawal of care, Hospice)? DNR status @ -No What co-morbidities impacted this encounter? (DM, HTN, Smoking, COPD, CAD, Cancer, CVA, ARF, Chemo, Hep., AIDS, mental health diagnosis, sleep apnea, morbid obesity)? @ -None Was patient admitted / discharged? Hospital course, mention meds given and route, prescriptions, significant lab abnormalities, going to OR and other pertinent info. @ -Discharge patient presented with fall x-rays negative there is no acute process on x-ray and negative ultrasound. Patient discharged with follow-up with EMPLOYMENT EVALUATOR/CASE MANAGER. Undiagnosed new problem with uncertain prognosis? @ -No Drug Therapy requiring intensive monitoring for toxicity (Heparin, Nitro, Insulin, Cardizem)? @ -No Were any procedures done? @ -No Diagnosis/symptom? @ -Fall, leg contusion Acute, or Chronic, or Acute on Chronic? @ -Acute Uncomplicated (without systemic symptoms) or Complicated (systemic symptoms)? @ -Uncomplicated Side effects of treatment? @ -No Exacerbation, Progression, or Severe Exacerbation? @ -No Poses a threat to life or bodily function? How? (Chest pain, [place], [place], pneumonia, PE, COPD, DKA, ARF, appy, cholecystitis, CVA, Diverticulitis, Homicidal, Suicidal, threat to staff... and all critical care pts) @ -No Disposition Clinical Impression: Fall, Contusion of leg Disposition: HOME SELF-CARE Condition: Stable Instructions (If sedation given, give patient instructions): Leg Pain (ED) Additional Instructions: Please return to the Emergency Department if symptoms worsen or any other concerns. Is patient prescribed a controlled substance at d/c from ED?: No Referrals: None,Stated [Primary Care Provider] - 1-2 days Time of Disposition: 13:47
--- NOTE | 2024-10-16 13:31 | US ---
EXAMINATION TYPE: US OB limited DATE OF EXAM: 10/16/2024 COMPARISON: NONE CLINICAL INDICATION: Female, 29 years old with history of heart tones; patient fell yesterday, assess for heart rate only TECHNIQUE: OBTA FINDINGS: GESTATIONAL AGE / DATING Physician Established: (10 weeks/3 days) EDC: 05/11/2025 No growth performed on today?s study per ordering physician HEART RATE: 175 bpm RHYTHM: Normal IMPRESSION: Information as described above. [facility], , 10/16/2024 1:29 PM
[2024-10-16 14:05] VITALS: BP 124/78; PULSE 81; TEMP 98.1
== END 2024-10-16 12:34 | disposition home or self-care (01) ==
LOC: EC 11:25
DX: O9A.211 Injury, poisoning and certain other consequences of external causes complicating pregnancy, first trimester (principal); O99.331 Smoking (tobacco) complicating pregnancy, first trimester; S80.11XA Contusion of right lower leg, initial encounter; F17.200 Nicotine dependence, unspecified, uncomplicated; Z88.0 Allergy status to penicillin; Z3A.11 11 weeks gestation of pregnancy; W10.8XXA Fall (on) (from) other stairs and steps, initial encounter
CPT/HCPCS: 76815; 99284

== ENCOUNTER 2024-11-29 09:38 | Emergency (ER) | payer BC, OTHER ==
[2024-11-29 09:48] VITALS: TEMP 99
[2024-11-29] MEDS: ONDANSETRON 4 MG/2 ML VIAL IVP STA (10:28)
[2024-11-29] MEDS: ACETAMINOPHEN TAB 500 MG TAB PO STA (10:28)
[2024-11-29 10:53] LABS: ALT 32 U/L (4-34); AST 34 U/L (14-36); African American GFR (CKD) >90 (>60 ml/min/1.73 sqM); Albumin 3.5 g/dL (3.5-5.0); Alkaline Phosphatase 84 U/L (38-126); Anion Gap 7 mmol/L; Blood Urea Nitrogen 5 mg/dL (7-17); Calcium 8.8 mg/dL (8.4-10.2); Carbon Dioxide 22 mmol/L (22-30); Chloride 103 mmol/L (98-107); Glucose 95 mg/dL (74-99); Non-African American GFR(CKD) >90 (>60 ml/min/1.73 sqM); Potassium 3.7 mmol/L (3.5-5.1); Sodium 132 mmol/L (137-145); Total Bilirubin 0.5 mg/dL (0.2-1.3); Total Protein 6.6 g/dL (6.3-8.2)
[2024-11-29 11:25] LABS: Basophils % (A) 0 %; Eosinophils # (A) 0.1 k/uL (0-0.7); Eosinophils % (A) 1 %; HCT 34.6 % (34.0-46.0); HGB 12.1 gm/dL (11.4-16.0); Influenza A Not Detected (Not Detectd); Influenza B Not Detected (Not Detectd); Lymphocytes # (A) 0.6 k/uL (1.0-4.8); Lymphocytes % (A) 7 %; MCH 29.1 pg (25.0-35.0); MCV 83.2 fL (80.0-100.0); Mean Platelet Volume 7.4; Monocytes # (A) 0.4 k/uL (0-1.0); Monocytes % (A) 5 %; Neutrophils # (A) 7.8 k/uL (1.3-7.7); Neutrophils % (A) 86 %; Platelet Count 162 k/uL (150-450); RBC 4.16 m/uL (3.80-5.40); RDW 14.2 % (11.5-15.5); RSV Not Detected (Not Detectd); WBC 9.1 k/uL (3.8-10.6)
[2024-11-29 12:03] LABS: Appearance,Urine Clear (Clear); Bilirubin,Urine Negative (Negative); Blood,Urine Negative (Negative); Color,Urine Yellow; Glucose,Urine (UA) Negative (Negative); Ketones,Urine Trace (Negative); Leukocyte Esterase,Urine Negative (Negative); Nitrite,Urine Negative (Negative); Protein,Urine Trace (Negative); Specific Gravity,Urine 1.029 (1.001-1.035); Urobilinogen,Urine <2.0 mg/dL (<2.0)
--- NOTE | 2024-11-29 12:30 | ED ---
Abdominal Pain HPI - General Chief Complaint: Abdominal Pain Stated Complaint: 17 Wk Gest ABD PN Vommiting Time Seen by Provider: 11/29/24 09:48 Source: patient, RN notes reviewed Mode of arrival: ambulatory Limitations: no limitations - History of Present Illness Initial Comments: 29-year-old female presents emergency department chief complaint of bodyaches fever chills cough congestion nausea vomiting. Symptoms are last couple days. Patient states she did have some lower abdominal pain but is subsiding. She is only concerned because she had a prior miscarriage. She is 17 weeks along. She denies any dysuria no vaginal bleeding or vaginal discharge no other complaints. - Related Data Previous Rx's Medication Instructions Recorded Acetaminophen Tab [Tylenol Tab] 1,000 mg PO Q6HR PRN #30 tablet 05/18/23 Amoxic-Pot Clav 875-125Mg 1 tab PO Q12HR 10 Days #20 tab 05/18/23 [Augmentin 875-125] Ibuprofen [Motrin] 600 mg PO Q6HR PRN #30 tab 06/05/23 Ondansetron Odt [Zofran Odt] 4 mg PO Q8HR PRN #15 tab 04/13/24 Ondansetron [Zofran] 4 mg PO Q8HR PRN #10 tab 09/22/24 Amoxic-Pot Clav 875-125Mg 1 tab PO Q12HR 7 Days #14 tab 10/10/24 [Augmentin 875-125] Allergies Allergy/AdvReac Type Severity Reaction Status Date / Time amoxicillin Allergy Rash/Hives Verified 11/29/24 09:44 Review of Systems ROS Statement: Those systems with pertinent positive or pertinent negative responses have been documented in the HPI. ROS Other: All systems not noted in ROS Statement are negative. Past Medical History Past Medical History: No Reported History Additional Past Medical History / Comment(s): PIH with first History of Any Multi-Drug Resistant Organisms: None Reported Past Surgical History: No Surgical Hx Reported Past Anesthesia/Blood Transfusion Reactions: No Reported Reaction Past Psychological History: ADD/ADHD Smoking Status: Former smoker Past Alcohol Use History: None Reported Past Drug Use History: None Reported, Marijuana General Exam Limitations: no limitations General appearance: alert, in no apparent distress Head exam: Present: atraumatic, normocephalic, normal inspection Eye exam: Present: normal appearance, PERRL, EOMI. Absent: scleral icterus, conjunctival injection, periorbital swelling ENT exam: Present: normal exam, mucous membranes moist Neck exam: Present: normal inspection, full ROM. Absent: tenderness, meningismus, lymphadenopathy Respiratory exam: Present: normal lung sounds bilaterally. Absent: respiratory distress, wheezes, rales, rhonchi, stridor Cardiovascular Exam: Present: normal rhythm, tachycardia, normal heart sounds. Absent: systolic murmur, diastolic murmur, rubs, gallop, clicks GI/Abdominal exam: Present: soft, normal bowel sounds. Absent: distended, tenderness, guarding, rebound, rigid Course Vital Signs 11/29/24 11/29/24 11/29/24 09:45 11:10 12:50 Temperature 99 F Pulse Rate 144 H 102 H 96 Respiratory 20 16 18 Rate Blood Pressure 106/68 120/77 104/62 O2 Sat by Pulse 97 97 96 Oximetry Medical Decision Making - Medical Decision Making Was pt. sent in by a medical professional or institution (, PA, REMOTE BROADCAST ENGINEER, urgent care, hospital, or fci...) When possible be specific @ -No Did you speak to anyone other than the patient for history (EMS, parent, family, police, friend...)? What history was obtained from this source @ -No Did you review nursing and triage notes (agree or disagree)? Why? @ -I reviewed and agree with nursing and triage notes Were old charts reviewed (outside hosp., previous admission, EMS record, old EKG, old radiological studies, urgent care reports/EKG's, fci records)? Report findings @ -No old charts were reviewed Differential Diagnosis (chest pain, altered mental status, abdominal pain women, abdominal pain men, vaginal bleeding, weakness, fever, dyspnea, syncope, headache, dizziness, GI bleed, back pain, seizure, CVA, palpatations, mental health, musculoskeletal)? @ -COVID 19, RSV, influenza, pneumonia, acute bronchitis, URI, this list is not all inclusive EKG interpreted by me (3pts min.). @ -As above X-rays interpreted by me (1pt min.). @ -Chest x-ray shows no acute cardio process CT interpreted by me (1pt min.). @ -None done U/S interpreted by me (1pt. min.). @ -None done What testing was considered but not performed or refused? (CT, X-rays, U/S, labs)? Why? @ -None What meds were considered but not given or refused? Why? @ -None Did you discuss the management of the patient with other professionals (professionals i.e. , PA, REMOTE BROADCAST ENGINEER, lab, RT, psych nurse, social security specialist, jewel bearing facer, teacher, foreign service officer, home health care case manager)? Give summary @ -No Was smoking cessation discussed for >3mins.? @ -No Was critical care preformed (if so, how long)? @ -No Were there social determinants of health that impacted care today? How? (Homelessness, low income, unemployed, alcoholism, drug addiction, transportation, low edu. Level, literacy, decrease access to med. care, intermediate, rehab)? @ -No Was there de-escalation of care discussed even if they declined (Discuss DNR or withdrawal of care, Hospice)? DNR status @ -No What co-morbidities impacted this encounter? (DM, HTN, Smoking, COPD, CAD, Cancer, CVA, ARF, Chemo, Hep., AIDS, mental health diagnosis, sleep apnea, morbid obesity)? @ -None Was patient admitted / discharged? Hospital course, mention meds given and route, prescriptions, significant lab abnormalities, going to OR and other pertinent info. @ -Discharge patient COVID-19 positive. Patient urinalysis unremarkable heart tones within normal limits. Patient discharged in stable condition. Undiagnosed new problem with uncertain prognosis? @ -No Drug Therapy requiring intensive monitoring for toxicity (Heparin, Nitro, Insulin, Cardizem)? @ -No Were any procedures done? @ -No Diagnosis/symptom? @ -Acute 19 Acute, or Chronic, or Acute on Chronic? @ -Acute Uncomplicated (without systemic symptoms) or Complicated (systemic symptoms)? @ -Uncomplicated Side effects of treatment? @ -No Exacerbation, Progression, or Severe Exacerbation? @ -No Poses a threat to life or bodily function? How? (Chest pain, [place], [place], pneumonia, PE, COPD, DKA, ARF, appy, cholecystitis, CVA, Diverticulitis, Homicidal, Suicidal, threat to staff... and all critical care pts) @ -No - Lab Data Result diagrams: 11/29/24 10:32 11/29/24 10:32 Lab Results 11/29/24 11/29/24 11/29/24 Range/Units 10:32 10:32 10:32 WBC 9.1 (3.8-10.6) k/uL RBC 4.16 (3.80-5.40) m/uL Hgb 12.1 (11.4-16.0) gm/dL Hct 34.6 (34.0-46.0) % MCV 83.2 (80.0-100.0) fL MCH 29.1 (25.0-35.0) pg MCHC 35.0 (31.0-37.0) g/dL RDW 14.2 (11.5-15.5) % Plt Count 162 (150-450) k/uL MPV 7.4 Neutrophils % 86 % Lymphocytes % 7 % Monocytes % 5 % Eosinophils % 1 % Basophils % 0 % Neutrophils # 7.8 H (1.3-7.7) k/uL Lymphocytes # 0.6 L (1.0-4.8) k/uL Monocytes # 0.4 (0-1.0) k/uL Eosinophils # 0.1 (0-0.7) k/uL Basophils # 0.0 (0-0.2) k/uL Sodium 132 L (137-145) mmol/L Potassium 3.7 (3.5-5.1) mmol/L Chloride 103 (98-107) mmol/L Carbon Dioxide 22 (22-30) mmol/L Anion Gap 7 mmol/L BUN 5 L (7-17) mg/dL Creatinine 0.52 (0.52-1.04) mg/dL Est GFR (CKD-EPI)AfAm >90 (>60 ml/min/1.73 sqM) Est GFR (CKD-EPI)NonAf >90 (>60 ml/min/1.73 sqM) Glucose 95 (74-99) mg/dL Calcium 8.8 (8.4-10.2) mg/dL Total Bilirubin 0.5 (0.2-1.3) mg/dL AST 34 (14-36) U/L ALT 32 (4-34) U/L Alkaline Phosphatase 84 (38-126) U/L Total Protein 6.6 (6.3-8.2) g/dL Albumin 3.5 (3.5-5.0) g/dL Urine Color Urine Appearance (Clear) Urine pH (5.0-8.0) Ur Specific [place] (1.001-1.035) Urine Protein (Negative) Urine Glucose (UA) (Negative) Urine Ketones (Negative) Urine Blood (Negative) Urine Nitrite (Negative) Urine Bilirubin (Negative) Urine Urobilinogen (<2.0) mg/dL Ur Leukocyte Esterase (Negative) Influenza Type A (PCR) Not Detected (Not Detectd) Influenza Type B (PCR) Not Detected (Not Detectd) RSV (PCR) Not Detected (Not Detectd) SARS-CoV-2 (PCR) Detected A (Not Detectd) 11/29/24 Range/Units 11:24 WBC (3.8-10.6) k/uL RBC (3.80-5.40) m/uL Hgb (11.4-16.0) gm/dL Hct (34.0-46.0) % MCV (80.0-100.0) fL MCH (25.0-35.0) pg MCHC (31.0-37.0) g/dL RDW (11.5-15.5) % Plt Count (150-450) k/uL MPV Neutrophils % % Lymphocytes % % Monocytes % % Eosinophils % % Basophils % % Neutrophils # (1.3-7.7) k/uL Lymphocytes # (1.0-4.8) k/uL Monocytes # (0-1.0) k/uL Eosinophils # (0-0.7) k/uL Basophils # (0-0.2) k/uL Sodium (137-145) mmol/L Potassium (3.5-5.1) mmol/L Chloride (98-107) mmol/L Carbon Dioxide (22-30) mmol/L Anion Gap mmol/L BUN (7-17) mg/dL Creatinine (0.52-1.04) mg/dL Est GFR (CKD-EPI)AfAm (>60 ml/min/1.73 sqM) Est GFR (CKD-EPI)NonAf (>60 ml/min/1.73 sqM) Glucose (74-99) mg/dL Calcium (8.4-10.2) mg/dL Total Bilirubin (0.2-1.3) mg/dL AST (14-36) U/L ALT (4-34) U/L Alkaline Phosphatase (38-126) U/L Total Protein (6.3-8.2) g/dL Albumin (3.5-5.0) g/dL Urine Color Yellow Urine Appearance Clear (Clear) Urine pH 6.0 (5.0-8.0) Ur Specific [place] 1.029 (1.001-1.035) Urine Protein Trace H (Negative) Urine Glucose (UA) Negative (Negative) Urine Ketones Trace H (Negative) Urine Blood Negative (Negative) Urine Nitrite Negative (Negative) Urine Bilirubin Negative (Negative) Urine Urobilinogen <2.0 (<2.0) mg/dL Ur Leukocyte Esterase Negative (Negative) Influenza Type A (PCR) (Not Detectd) Influenza Type B (PCR) (Not Detectd) RSV (PCR) (Not Detectd) SARS-CoV-2 (PCR) (Not Detectd) - EKG Data -: EKG Interpreted by Ca EKG Comments: EKG performed at 10: 01 sinus tachycardia rate of 122 FL 149 QRS 72 QT/QTc 283/355 Disposition Clinical Impression: COVID-19 Disposition: HOME SELF-CARE Condition: Stable Instructions (If sedation given, give patient instructions): Coronavirus Disease 2019 (COVID-19) Additional Instructions: Please return to the Emergency Department if symptoms worsen or any other concerns. Is patient prescribed a controlled substance at d/c from ED?: No Referrals: None,Stated [Primary Care Provider] - 1-2 days Time of Disposition: 12:30
[2024-11-29 12:51] VITALS: BP 104/62; PULSE 96; RESP 18
== END 2024-11-29 12:51 | disposition home or self-care (01) ==
LOC: EC 09:38
DX: O98.512 Other viral diseases complicating pregnancy, second trimester (principal); U07.1 COVID-19; Z87.891 Personal history of nicotine dependence; O99.412 Diseases of the circulatory system complicating pregnancy, second trimester; R00.0 Tachycardia, unspecified; Z88.0 Allergy status to penicillin; Z3A.17 17 weeks gestation of pregnancy
CPT/HCPCS: 36415; 80053; 85025; 81003; 87636; 99284; 96374; J2405

== ENCOUNTER 2024-11-29 20:29 | Emergency (ER) | payer BC, OTHER ==
[2024-11-29 20:34] VITALS: RESP 18
[2024-11-29] MEDS: ACETAMINOPHEN TAB 325 MG TAB PO STA (22:29)
[2024-11-29] MEDS: DEXTROSE 5%-0.45% NACL 1,000 ML IV ONE (22:30)
[2024-11-29] MEDS: PYRIDOXINE 100 MG/ML 1 ML VIAL IVP STA (22:45)
--- NOTE | 2024-11-29 23:01 | ED ---
Nausea/Vomiting/Diarrhea HPI - General Chief complaint: Nausea/Vomiting/Diarrhea Stated complaint: 17 wks prg, covid + Time Seen by Provider: 11/29/24 22:59 Source: patient, RN notes reviewed Mode of arrival: ambulatory Limitations: no limitations - History of Present Illness Initial comments: 29-year-old female at 17 weeks gestation presenting for headache x 1 day with cough and bodyaches. States she was seen earlier today in the ER where she was diagnosed with COVID-19 and discharged. States she got home and continues to experience headache, nausea, and vomiting. Denies abdominal pain or vaginal bleeding. - Related Data Previous Rx's Medication Instructions Recorded Acetaminophen Tab [Tylenol Tab] 1,000 mg PO Q6HR PRN #30 tablet 05/18/23 Amoxic-Pot Clav 875-125Mg 1 tab PO Q12HR 10 Days #20 tab 05/18/23 [Augmentin 875-125] Ibuprofen [Motrin] 600 mg PO Q6HR PRN #30 tab 06/05/23 Ondansetron Odt [Zofran Odt] 4 mg PO Q8HR PRN #15 tab 04/13/24 Ondansetron [Zofran] 4 mg PO Q8HR PRN #10 tab 09/22/24 Amoxic-Pot Clav 875-125Mg 1 tab PO Q12HR 7 Days #14 tab 10/10/24 [Augmentin 875-125] Allergies Allergy/AdvReac Type Severity Reaction Status Date / Time amoxicillin Allergy Rash/Hives Verified 11/29/24 20:31 Review of Systems ROS Statement: Those systems with pertinent positive or pertinent negative responses have been documented in the HPI. ROS Other: All systems not noted in ROS Statement are negative. Past Medical History Past Medical History: No Reported History Additional Past Medical History / Comment(s): PIH with first History of Any Multi-Drug Resistant Organisms: None Reported Past Surgical History: No Surgical Hx Reported Past Anesthesia/Blood Transfusion Reactions: No Reported Reaction Past Psychological History: ADD/ADHD Smoking Status: Former smoker Past Alcohol Use History: None Reported Past Drug Use History: None Reported, Marijuana General Exam Limitations: no limitations General appearance: alert, in no apparent distress Head exam: Present: atraumatic, normocephalic, normal inspection Eye exam: Present: normal appearance, PERRL, EOMI. Absent: scleral icterus, conjunctival injection, periorbital swelling ENT exam: Present: normal exam, normal oropharynx, mucous membranes moist Neck exam: Present: normal inspection. Absent: tenderness, meningismus, lymphadenopathy Respiratory exam: Present: normal lung sounds bilaterally. Absent: respiratory distress, wheezes, rales, rhonchi, stridor Cardiovascular Exam: Present: regular rate, normal rhythm, normal heart sounds. Absent: systolic murmur, diastolic murmur, rubs, gallop, clicks GI/Abdominal exam: Present: soft, normal bowel sounds. Absent: distended, tenderness, guarding, rebound, rigid Neurological exam: Present: alert, oriented X3 Psychiatric exam: Present: normal affect, normal mood Skin exam: Present: warm, dry, intact, normal color. Absent: rash Course Vital Signs 11/29/24 11/29/24 20:31 23:00 Temperature 99.8 F H 98.7 F Pulse Rate 119 H 97 Respiratory 18 18 Rate Blood Pressure 136/83 108/68 O2 Sat by Pulse 98 98 Oximetry Medical Decision Making - Medical Decision Making Was pt. sent in by a medical professional or institution (, PA, DESIGN TRANSFERRER, urgent care, hospital, or long term...) When possible be specific @ -No Did you speak to anyone other than the patient for history (EMS, parent, family, police, friend...)? What history was obtained from this source @ -No Did you review nursing and triage notes (agree or disagree)? Why? @ -I reviewed and agree with nursing and triage notes Were old charts reviewed (outside hosp., previous admission, EMS record, old EKG, old radiological studies, urgent care reports/EKG's, long term records)? Report findings @ -Yes, ER visit from earlier today reviewed including lab work, chest x-ray, viral swabs Differential Diagnosis (chest pain, altered mental status, abdominal pain women, abdominal pain men, vaginal bleeding, weakness, fever, dyspnea, syncope, headache, dizziness, GI bleed, back pain, seizure, CVA, palpatations, mental health, musculoskeletal)? @ -Not applicable EKG interpreted by me (3pts min.). @ -None X-rays interpreted by me (1pt min.). @ -None done CT interpreted by me (1pt min.). @ -None done U/S interpreted by me (1pt. min.). @ -None done What testing was considered but not performed or refused? (CT, X-rays, U/S, labs)? Why? @ -Lab work/chest x-ray/viral swabs not performed as these were performed earlier today for same symptoms What meds were considered but not given or refused? Why? @ -None Did you discuss the management of the patient with other professionals (professionals i.e. , PA, DESIGN TRANSFERRER, lab, RT, psych nurse, licensed clinical social worker, lawyer real estate, teacher, occupational medicine officer, shelter case manager)? Give summary @ -No Was smoking cessation discussed for >3mins.? @ -No Was critical care preformed (if so, how long)? @ -No Were there social determinants of health that impacted care today? How? (Homelessness, low income, unemployed, alcoholism, drug addiction, transportation, low edu. Level, literacy, decrease access to med. care, senior living, rehab)? @ -No Was there de-escalation of care discussed even if they declined (Discuss DNR or withdrawal of care, Hospice)? DNR status @ -No What co-morbidities impacted this encounter? (DM, HTN, Smoking, COPD, CAD, Cancer, CVA, ARF, Chemo, Hep., AIDS, mental health diagnosis, sleep apnea, morbid obesity)? @ -None Was patient admitted / discharged? Hospital course, mention meds given and route, prescriptions, significant lab abnormalities, going to OR and other pertinent info. @ -Discharge. This is a 29-year-old female at 17 weeks gestation presenting for chief complaint of headache with nausea and vomiting. Patient was seen in ER earlier today and diagnosed with COVID-19. At this time, lab work, chest x-ray, and heart tones were performed which returned normal. Patient was positive for COVID-19 and discharged. Vital signs are remarkable for tachyca rdia at 119 bpm, temperature 99.8, satting 98% on room air. No sign of respiratory distress. Patient was provided with IV fluids, vitamin B6 for nausea, and Tylenol for supportive care. Patient was observed in the ER for 3 hours. Upon reevaluation, temperature reduces to 98.7, heart rate 97. Patient reports significant improvement of symptoms and states she would like to be discharged. Appropriate return precautions and follow-up care discussed. Case was discussed with my ED attending Dr. Wu. Undiagnosed new problem with uncertain prognosis? @ -No Drug Therapy requiring intensive monitoring for toxicity (Heparin, Nitro, Insulin, Cardizem)? @ -No Were any procedures done? @ -No Diagnosis/symptom? @ -COVID-19 Acute, or Chronic, or Acute on Chronic? @ -Acute Uncomplicated (without systemic symptoms) or Complicated (systemic symptoms)? @ -Complicated Side effects of treatment? @ -No Exacerbation, Progression, or Severe Exacerbation? @ -No Poses a threat to life or bodily function? How? (Chest pain, [place], [place], pneumonia, PE, COPD, DKA, ARF, appy, cholecystitis, CVA, Diverticulitis, Homicidal, Suicidal, threat to staff... and all critical care pts) @ -No Disposition Clinical Impression: COVID-19 Disposition: HOME SELF-CARE Condition: Stable Instructions (If sedation given, give patient instructions): How to Recover from COVID-19 at Home (ED) Additional Instructions: Take Tylenol as needed for pain/fever. Please return to the Emergency Department if symptoms worsen or any other concerns. Is patient prescribed a controlled substance at d/c from ED?: No Referrals: None,Stated [Primary Care Provider] - 1-2 days Time of Disposition: 23:47
[2024-11-29 23:43] VITALS: BP 108/68; PULSE 97; TEMP 98.7
== END 2024-11-30 00:23 | disposition home or self-care (01) ==
LOC: EC 20:29
DX: O99.512 Diseases of the respiratory system complicating pregnancy, second trimester (principal); U07.1 COVID-19; Z87.891 Personal history of nicotine dependence; Z3A.17 17 weeks gestation of pregnancy
CPT/HCPCS: 99284; 96374; 96361; J3415

== ENCOUNTER 2025-01-08 19:44 | Outpatient (CLI) | payer BC, OTHER ==
[2025-01-08 21:21] VITALS: BP 146/71; PULSE 95; RESP 16; TEMP 98.1
--- NOTE | 2025-01-25 11:20 | P.MSEPDOC ---
Presenting Problems - Arrival Data Date of Arrival on Unit: 01/08/25 Time of Arrival on Unit: 19:44 Mode of Transport: Ambulatory - Complaint OB-Reason for Admission/Chief Complaint: Other Comment: Patient presents to triage with complaint of bleeding when stooling. Patient states she notices drips of blood in the toilet and on the toilet paper, did not wear pad into triage. Medical History - Information : 3 Para: 1 Term: 1 : 0 Abortions: Spontaneous or Elective: 1 Number of Living Children: 1 - Gestational Age Gestational Age by ROSALINE (wks/days): 22 Weeks and 5 Days Review of Systems - Review of Systems Constitutional: No problems, Recent weight loss Breast: No problems ENT: No problems Cardiovascular: No problems Respiratory: No problems Gastrointestinal: No problems Genitourinary: No problems Musculoskeletal: No problems Neurological: No problems Skin: No problems Vital Signs - Temperature Temperature: 98.1 F Temperature Source: Oral - Pulse Right Brachial Pulse Rate: 95 Pulse Assessment Method: Automatic Cuff - Respirations Respiratory Rate: 16 Oxygen Delivery Method: Room Air O2 Sat by Pulse Oximetry: 98 - Blood Pressure Right Arm Blood Pressure: 146/71 Blood Pressure Mean: 96 Blood Pressure Source: Automatic Cuff Medical Screen Scoring - Uterine Contractions Resting: Soft to palpation Physician Notification - Physician Notified Physician Notified Date: 01/08/25 Physician Notified Time: 20:19 Physician: Aneudy Cuevas Order Received: Yes - Notification Comment Comment: Dr. Cuevas called with report on patient that present to triage with complaint of bleeding with stools since following hard stool on tuesday. RN examined vaginal and rectal area, no bleeding noted. Abdomen soft, no contractions noted per patient or toco. FHT between 150-160 on doopler. Vitals reviewed. Patient to be discharged home and follow up in office this week. Maternal Triage Index - Maternal Triage Index Presenting for scheduled procedure w/no complaint: No - Stat/Priority 1 Stat Priority 1: No - Urgent/Priority 2 Urgent Priority 2: No - Prompt/Priority 3 Prompt Priority 3: No - Non-Urgent/Priority 4 Non-Urgent Priority 4: Yes Criteria Met for Priority 4: bleeding with stooling Disposition - Disposition OB Disposition: Discharge to home Discharge Date: 01/08/25 Discharge Time: 20:30 I agree with the RN Medical Screening Exam: Yes Physician's MSE Comment: I have neither seen nor examined the patient. Case reviewed; plan agreed upon as documented in EMR&OBIX.: Yes Diagnosis: RELATED CONDITIONS, UNSPECIFIED, SECOND TRIMESTER
== END 2025-01-08 20:30 ==
LOC: FBPOP 19:44
PROVIDERS: ATTEND Obstetrics & Gynecology
DX: O26.92 Pregnancy related conditions, unspecified, second trimester (principal); Z3A.22 22 weeks gestation of pregnancy; Z88.0 Allergy status to penicillin; Z87.891 Personal history of nicotine dependence
CPT/HCPCS: 99213

== ENCOUNTER 2025-02-14 10:56 | Outpatient (CLI) | payer BC, OTHER ==
[2025-02-14 11:44] VITALS: BP 137/71; PULSE 94; RESP 16; TEMP 97.9
--- NOTE | 2025-04-15 10:30 | P.MSEPDOC ---
Presenting Problems - Arrival Data Date of Arrival on Unit: 02/14/25 Time of Arrival on Unit: 10:56 Mode of Transport: Wheelchair - Complaint OB-Reason for Admission/Chief Complaint: Decreased Movement Comment: pt complains of decreased movement for 3 days. Medical History - Information : 3 Para: 1 Term: 1 : 0 Abortions: Spontaneous or Elective: 1 Number of Living Children: 1 - Gestational Age Gestational Age by ROSALINE (wks/days): 28 Weeks and 0 Days Review of Systems - Review of Systems Constitutional: No problems Breast: No problems ENT: No problems Cardiovascular: No problems Respiratory: No problems Gastrointestinal: No problems Genitourinary: No problems Musculoskeletal: No problems Neurological: No problems Skin: No problems Vital Signs - Temperature Temperature: 97.9 F Temperature Source: Temporal Artery Scan - Pulse Pulse Oximetery Pulse Rate: 94 Pulse Assessment Method: Pulse Oximetry - Respirations Respiratory Rate: 16 Oxygen Delivery Method: Room Air O2 Sat by Pulse Oximetry: 97 - Blood Pressure Right Arm Blood Pressure: 137/71 Blood Pressure Mean: 93 Blood Pressure Source: Automatic Cuff Medical Screen Scoring - Uterine Contractions Resting: Soft to palpation - Assessment - Baby A Baseline FHR: 150 Heart Rate - NICHD Category: Category I (Normal) NST: Reactive Physician Notification - Physician Notified Physician Notified Date: 02/14/25 Physician Notified Time: 11:28 Physician: Juliann Webster New Order Received: Yes (d/c home) Maternal Triage Index - Maternal Triage Index Presenting for scheduled procedure w/no complaint: No - Stat/Priority 1 Stat Priority 1: No - Urgent/Priority 2 Urgent Priority 2: Yes Provider Notified: Juliann Webster Provider Notified Time: 11:28 Criteria Met for Priority 2: decreased movement for 3 days. Disposition - Disposition OB Disposition: Discharge to home Discharge Date: 02/14/25 Discharge Time: 11:35 I agree with the RN Medical Screening Exam: Yes Case reviewed; plan agreed upon as documented in EMR&OBIX.: Yes Diagnosis: DECREASED MOVEMENTS, THIRD TRIMESTER, FETUS 1
== END 2025-02-14 11:35 | disposition home or self-care (01) ==
LOC: FBPOP 10:56
PROVIDERS: ATTEND Obstetrics & Gynecology
DX: Z53.9 Procedure and treatment not carried out, unspecified reason (principal)
CPT/HCPCS: 59025; 99213

== ENCOUNTER 2025-03-21 20:35 | Outpatient (CLI) | payer BC, OTHER ==
[2025-03-21] MEDS: diphenhydrAMINE 25 MG CAP PO STA (21:11)
[2025-03-21 22:03] LABS: ALT 349 U/L (4-34); AST 274 U/L (14-36)
[2025-03-21 23:58] VITALS: BP 131/67; PULSE 92; RESP 16; TEMP 97.8
--- NOTE | 2025-04-20 14:55 | P.MSEPDOC ---
Presenting Problems - Arrival Data Date of Arrival on Unit: 03/21/25 Time of Arrival on Unit: 20:35 Mode of Transport: Ambulatory - Complaint OB-Reason for Admission/Chief Complaint: Other Comment: Pt presents to triage with complaints of intense generalized itching and feeling "like im burning up Medical History - Information : 3 Para: 1 Term: 1 : 0 Abortions: Spontaneous or Elective: 1 Number of Living Children: 1 - Gestational Age Gestational Age by ROSALINE (wks/days): 33 Weeks and 0 Days - History Sexually Transmitted Diseases: HCV Review of Systems - Review of Systems Constitutional: No problems Breast: No problems ENT: No problems Cardiovascular: No problems Respiratory: No problems Gastrointestinal: No problems Genitourinary: No problems Musculoskeletal: No problems Neurological: No problems Skin: No problems Vital Signs - Temperature Temperature: 97.8 F Temperature Source: Oral - Pulse Pulse Oximetery Pulse Rate: 92 Pulse Assessment Method: Pulse Oximetry - Respirations Respiratory Rate: 16 Oxygen Delivery Method: Room Air O2 Sat by Pulse Oximetry: 98 - Blood Pressure Right Arm Blood Pressure: 131/67 Blood Pressure Mean: 88 Blood Pressure Source: Automatic Cuff Medical Screen Scoring - Cervical Exam Membranes: Intact - Uterine Contractions Intensity: Absent Resting: Soft to palpation - Assessment - Baby A Baseline FHR: 155 Heart Rate - NICHD Category: Category I (Normal) NST: Reactive Physician Notification - Physician Notified Physician Notified Date: 03/21/25 Physician Notified Time: 20:55 Physician: Veronica Duque New Order Received: Yes - Notification Comment Comment: Dr. Duque called at home, reported on pt complaints, GA, G/P, VSS, CAT 1 FHT, pt due to get liver labs drawn tomorrow, Hep C+. Order for AST and ALT labs, Benadryl 25mg PO. Maternal Triage Index - Maternal Triage Index Presenting for scheduled procedure w/no complaint: No - Stat/Priority 1 Stat Priority 1: No - Urgent/Priority 2 Urgent Priority 2: No - Prompt/Priority 3 Prompt Priority 3: No - Non-Urgent/Priority 4 Non-Urgent Priority 4: Yes Criteria Met for Priority 4: Pt presents to triage with complaints of intense generalized itching and feeling "like im burning up". Disposition - Disposition OB Disposition: Discharge to home Discharge Date: 03/21/25 Discharge Time: 22:45 I agree with the RN Medical Screening Exam: Yes Physician's MSE Comment: I have neither seen nor examined the patient Case reviewed; plan agreed upon as documented in EMR&OBIX.: Yes Diagnosis: RELATED CONDITIONS, UNSPECIFIED, THIRD TRIMESTER
== END 2025-03-21 22:45 | disposition home or self-care (01) ==
LOC: FBPOP 20:35
PROVIDERS: ATTEND Obstetrics & Gynecology Obstetrics
DX: O26.893 Other specified pregnancy related conditions, third trimester (principal); Z88.0 Allergy status to penicillin; Z87.891 Personal history of nicotine dependence; Z3A.33 33 weeks gestation of pregnancy
CPT/HCPCS: 59025; 84450; 84460; 99213

== ENCOUNTER 2025-03-24 07:02 | Outpatient (CLI) | payer OTHER ==
[2025-03-24 07:29] LABS: Appearance,Urine Cloudy (Clear); Bacteria,Urine Occasional /hpf; Bilirubin,Urine Negative (Negative); Blood,Urine Negative (Negative); Color,Urine Yellow; Glucose,Urine (UA) Negative (Negative); Ketones,Urine Negative (Negative); Leukocyte Esterase,Urine Negative (Negative); Mucus,Urine Rare /hpf; Nitrite,Urine Negative (Negative); PH, Urine 6.5 (5.0-8.0); Protein,Urine Trace (Negative); RBC,Urine 2 /hpf (0-5); Specific Gravity,Urine 1.018 (1.001-1.035); Squamous Epithelial Cell,Urine 7 /hpf (0-4); WBC,Urine 2 /hpf (0-5)
[2025-03-24] MEDS: ACETAMINOPHEN TAB 500 MG TAB PO STA (07:50)
[2025-03-24 08:42] VITALS: BP 138/66; RESP 18; TEMP 97.7
--- NOTE | 2025-04-20 14:59 | P.MSEPDOC ---
Presenting Problems - Arrival Data Date of Arrival on Unit: 03/24/25 Time of Arrival on Unit: 06:57 Mode of Transport: Ambulatory - Complaint OB-Reason for Admission/Chief Complaint: Decreased Movement, Headache Medical History - Information : 3 Para: 1 Term: 1 Abortions: Spontaneous or Elective: 1 Number of Living Children: 1 - Gestational Age Gestational Age by ROSALINE (wks/days): 33 Weeks and 3 Days - History Comment: Pt Hep C positive- Hep C positive, pt denies hx of drug use Review of Systems - Review of Systems Constitutional: No problems Breast: No problems ENT: No problems Cardiovascular: No problems Respiratory: No problems Gastrointestinal: No problems Genitourinary: No problems Musculoskeletal: No problems Neurological: No problems Skin: No problems Vital Signs - Temperature Temperature: 97.7 F Temperature Source: Oral - Respirations Respiratory Rate: 18 Oxygen Delivery Method: Room Air O2 Sat by Pulse Oximetry: 99 - Blood Pressure Right Arm Sitting Blood Pressure: 138/66 Blood Pressure Mean: 90 Blood Pressure Source: Automatic Cuff Medical Screen Scoring - Uterine Contractions Intensity: Absent Resting: Soft to palpation - Assessment - Baby A Baseline FHR: 140 Heart Rate - NICHD Category: Category I (Normal) NST: Reactive Physician Notification - Physician Notified Physician Notified Date: 03/24/25 Physician Notified Time: 07:40 Physician: Thi Belle New Order Received: Yes - Notification Comment Comment: [id number]-Spk c\/ winnie Belle pts of Dr. Castro, reports to triage c/o headache and decreased FM following intercourse at 0000. Reviewed pts c oncerns, hx and UA results. Cat 1 FHT, reactive NST. Order rec'd for Tylenol 100mg PO once, reevaluate headache and pt may be discharged home if improves. 0830-Pt states headache has resolved considerably and she would like to go home. Maternal Triage Index - Maternal Triage Index Presenting for scheduled procedure w/no complaint: No - Stat/Priority 1 Stat Priority 1: No - Urgent/Priority 2 Urgent Priority 2: Yes Provider Notified: Thi Belle Provider Notified Time: 07:40 Criteria Met for Priority 2: Decreased FM Disposition - Disposition OB Disposition: Discharge to home, Written follow up instructions reviewed Discharge Date: 03/24/25 Discharge Time: 08:35 I agree with the RN Medical Screening Exam: Yes Physician's MSE Comment: I have neither seen nor examined the patient Case reviewed; plan agreed upon as documented in EMR&OBIX.: Yes Diagnosis: RELATED CONDITIONS, UNSPECIFIED, THIRD TRIMESTER
== END 2025-03-24 08:35 | disposition home or self-care (01) ==
LOC: FBPOP 07:02
PROVIDERS: ATTEND Obstetrics & Gynecology
DX: O26.893 Other specified pregnancy related conditions, third trimester (principal); Z88.0 Allergy status to penicillin; Z87.891 Personal history of nicotine dependence; Z3A.33 33 weeks gestation of pregnancy
CPT/HCPCS: 59025; 81001; G0463; 99213

== ENCOUNTER 2025-04-09 17:34 | Outpatient (CLI) | payer OTHER ==
[2025-04-09 19:22] VITALS: BP 129/64; PULSE 99; RESP 15; TEMP 97
--- NOTE | 2025-05-03 11:21 | P.MSEPDOC ---
Presenting Problems - Arrival Data Date of Arrival on Unit: 04/09/25 Time of Arrival on Unit: 17:34 Mode of Transport: Ambulatory - Complaint OB-Reason for Admission/Chief Complaint: Decreased Movement Comment: Patient arrived states that movement is less starting last night. Patient states she was seeing Dr. Webster for all . Patient states that she had a headache this morning and is seeing stars, patient is not currently having these symptoms. Patient states that she is not having these symptoms currently. Patient states she had sex within 24 hours. 3 Medical History - Information : 3 Para: 1 Term: 1 Abortions: Spontaneous or Elective: 1 Number of Living Children: 1 - Gestational Age Gestational Age by ROSALINE (wks/days): 35 Weeks and 2 Days - History Comment: HEP C high blood pressure Review of Systems - Review of Systems Constitutional: No problems Breast: No problems ENT: No problems Cardiovascular: No problems Respiratory: No problems Gastrointestinal: No problems Genitourinary: No problems Musculoskeletal: No problems Neurological: No problems Skin: No problems Vital Signs - Temperature Temperature: 97.0 F Temperature Source: Axillary - Pulse Pulse Oximetery Pulse Rate: 99 Pulse Assessment Method: Pulse Oximetry - Respirations Respiratory Rate: 15 Oxygen Delivery Method: Room Air O2 Sat by Pulse Oximetry: 100 - Blood Pressure Right Arm Blood Pressure: 129/64 Blood Pressure Mean: 85 Blood Pressure Source: Automatic Cuff Medical Screen Scoring - Assessment - Baby A Baseline FHR: 150 Heart Rate - NICHD Category: Category I (Normal) NST: Reactive Maternal Triage Index - Urgent/Priority 2 Urgent Priority 2: Yes Provider Notified: Aneudy Cuevas Provider Notified Time: 18:04 Criteria Met for Priority 2: RN spoke with Dr. Cuevas regarding HX, Patient c/o of decreased movement, Cat 1 FHR, abdomen is soft to palpation, vitals. Dr. Cuevas aware of patient having headache earlier in the day and seeing stars. Patient is no longer having these symptoms. Dr. Cuevas is discharging patient. Patient has an scheduled appointment tomorrow. Disposition - Disposition OB Disposition: Discharge to home Discharge Date: 04/09/25 Discharge Time: 18:05 I agree with the RN Medical Screening Exam: Yes Physician's MSE Comment: I have neither seen nor examined the patient. Case reviewed; plan agreed upon as documented in EMR&OBIX.: Yes Diagnosis: RELATED CONDITIONS, UNSPECIFIED, THIRD TRIMESTER
== END 2025-04-09 18:05 | disposition home or self-care (01) ==
LOC: FBPOP 17:34
PROVIDERS: ATTEND Obstetrics & Gynecology
DX: O36.8130 Decreased fetal movements, third trimester, not applicable or unspecified (principal); Z3A.35 35 weeks gestation of pregnancy; Z88.0 Allergy status to penicillin; Z87.891 Personal history of nicotine dependence
CPT/HCPCS: 59025; G0463; 99213

== ENCOUNTER 2025-04-22 06:00 | Inpatient (IN) | payer BC, OTHER ==
[2025-04-22] MEDS ORDERED: miSOPROStoL 200 MCG TAB PO PRN (06:17)
[2025-04-22] MEDS ORDERED: TRANEXAMIC 1,000 MG/100ML-NACL 1,000 MG in EMPTY BAG 1 BAG IV PRN (06:17)
[2025-04-22] MEDS ORDERED: miSOPROStoL 200 MCG TAB RECTAL PRN (06:17)
[2025-04-22] MEDS ORDERED: OXYTOCIN 10 UNIT/ML 1 ML VIAL IM PRN (06:17)
[2025-04-22] MEDS ORDERED: TERBUTALINE 1 MG/ML VIAL SQ PRN ×2 (06:17→07:26)
[2025-04-22] MEDS ORDERED: CARBOPROST TROMETHAMINE 250 MCG/ML 1 ML AMP IM PRN (06:17)
[2025-04-22] MEDS: LACTATED RINGERS 1,000 ML IV SCH (07:20)
[2025-04-22] MEDS: OXYTOCIN 30 UNITS/500 ML NS 30 UNIT in SALINE 1 500ML.BAG IV SCH (07:34)
[2025-04-22 07:48] LABS: Basophils # (A) 0.06 10*3/uL (0.00-0.10); Basophils % (A) 0.5 %; Eosinophils # (A) 0.32 10*3/uL (0.04-0.35); Eosinophils % (A) 2.5 %; HCT 34.9 % (37.2-46.3); HGB 11.9 g/dL (12.0-15.0); Lymphocytes # (A) 3.34 10*3/uL (0.90-5.00); Lymphocytes % (A) 26.5 %; MCH 28.7 pg (27.0-32.0); MCHC 34.1 g/dL (32.0-37.0); MCV 84.3 fL (80.0-97.0); Mean Platelet Volume 10.9 fL (9.5-12.2); Monocytes # (A) 0.75 10*3/uL (0.20-1.00); Monocytes % (A) 5.9 %; Neutrophils # (A) 8.08 10*3/uL (1.80-7.70); Platelet Count 220 10*3/uL (140-440); RBC 4.14 10*6/uL (4.10-5.20); RDW 13.2 % (11.5-14.5); WBC 12.62 10*3/uL (4.50-10.00)
[2025-04-22] MEDS ORDERED: BUTORPHANOL 1 MG/ML 1 ML VIAL IV PRN (12:44)
--- NOTE | 2025-04-22 12:52 | P.HPOB ---
History of Present Illness H&P Date: 04/22/25 Chief Complaint: 37+ weeks, hepatitis C, induction The patient is a 30-year-old 3 para 1-0-1-1 admitted at 37+ weeks as established by 7-week ultrasound. She is admitted for induction of labor secondary to the diagnosis of hepatitis C. Her has been essentially uncomplicated though she does have a history of previous hypertension for which she has been maintained on labetalol 100 mg twice daily sitting since 32 weeks. Apparent issues with the hepatitis C during the . On labor and delivery, all signs are reassuring with a category 1 heart rate tracing. Group B strep status is negative. Obstetrical history: 3 para 1-0-1-1 with 1 term normal vaginal delivery complicated by gestational hypertension. Current statistics are listed history of present illness. EDC of 05/11/2025 was established by 7-week ultrasound. Laboratory workup demonstrates a blood type of A+ with a negative antibody screen. Laboratory workup was within normal limits aside from her hepatitis C positivity. Early Glucola second trimester Glucola were within this. Liver functions were mild to moderately elevated throughout the . Group B strep status is negative. Gynecologic history: Unremarkable with no history of any infections aside from the above-mentioned hepatitis C. There have been no other STDs. Review of Systems Review of systems is confined to history of present illness. Past Medical History Past Medical History: No Reported History Additional Past Medical History / Comment(s): PIH with first History of Any Multi-Drug Resistant Organisms: None Reported Past Surgical History: No Surgical Hx Reported Past Anesthesia/Blood Transfusion Reactions: No Reported Reaction Past Psychological History: ADD/ADHD, Bipolar Smoking Status: Former smoker Past Alcohol Use History: None Reported Past Drug Use History: None Reported, Marijuana Medications and Allergies Home Medications Medication Instructions Recorded Confirmed Type Aspirin 1 tab PO DAILY 02/14/25 04/09/25 History Labetalol [Trandate] 1 tab PO BID 02/14/25 04/09/25 History Vit No.179/Iron/Folic 1 tab PO DAILY 02/14/25 04/09/25 History [ Tablet] Famotidine [Pepcid] 20 mg PO DAILY 03/24/25 04/09/25 History Allergies Allergy/AdvReac Type Severity Reaction Status Date / Time amoxicillin Allergy Rash/Hives Verified 04/22/25 08:14 Penicillins Allergy Rash/Hives Verified 04/22/25 08:14 Exam Vital Signs Temp Pulse Resp BP Pulse Ox 04/22/25 07:00 97.2 F L 103 H 16 124/80 95 Intake and Output 04/21/25 04/22/25 04/22/25 22:59 06:59 14:59 Other: Weight 117.027 kg 117.027 kg In general, this is a well-developed, mild to moderately obese white female in no acute distress. Her heart has a regular rhythm and rate without murmur. Her lungs are clear to auscultation all kaye. Her abdomen is gravid, nondistended, has normal active bowel sounds, is soft, nontender, and without any palpable masses aside from the uterine fundus. Her extremities are without any cyanosis, clubbing, or significant edema and are nontender to palpation bilaterally. Digital cervical examination demonstrates her cervix to be 1 to 2 cm dilated, 50% effaced, the vertex and presentation at -3 station. Artificial rupture of membranes is carried out demonstrating lightly meconium stained fluid. Results Result Diagrams: 04/22/25 07:00 Abnormal Lab Results - Last 24 Hours (Table) 04/22/25 Range/Units 07:00 WBC 12.62 H (4.50-10.00) 10*3/uL Hgb 11.9 L (12.0-15.0) g/dL Hct 34.9 L (37.2-46.3) % Immature Gran # 0.07 H (0.00-0.04) 10*3/uL Neutrophils # 8.08 H (1.80-7.70) 10*3/uL Assessment and Plan (1) Hepatitis C Current Visit: Yes Status: Acute Code(s): B19.20 - UNSPECIFIED VIRAL HEPATITIS C WITHOUT HEPATIC COMA SNOMED Code(s): 24068810 (2) Term Current Visit: Yes Status: Acute Code(s): Z34.90 - ENCNTR FOR SUPRVSN OF N ORMAL , UNSP, UNSP TRIMESTER SNOMED Code(s): 67477160 (3) Chronic hypertension affecting Current Visit: Yes Status: Acute Code(s): O10.919 - UNSP PRE-EXISTING HTN COMP , UNSP TRIMESTER SNOMED Code(s): 53101460 Plan: Patient is admitted for Pitocin induction which has been started and she has undergone artificial rupture of membranes. She will have close maternal and surveillance and expectant management will be practiced. She is a good candidate for either IV or epidural analgesia, which ever she may choose.
[2025-04-22] MEDS ORDERED: fentaNYL (PF) 50 MCG/ML 5 ML AMP ONE (18:10)
[2025-04-22] MEDS ORDERED: ROPIVACAINE 5 MG/ML 30 ML VIAL ONE (18:10)
[2025-04-22] MEDS ORDERED: SODIUM CHLORIDE 0.9% 250 ML BAG ONE (18:10)
[2025-04-23] MEDS: LIDOCAINE 0.5% (PF) 5 MG/ML (50 ML SDV) SQ PRN (03:00)
[2025-04-23] MEDS: METHYLERGONOVINE 0.2 MG/ML 1 ML AMP IM PRN (03:00)
[2025-04-23] MEDS ORDERED: diphenhydrAMINE 25 MG CAP PO PRN (03:09)
[2025-04-23] MEDS ORDERED: diphenhydrAMINE 50 MG/ML 1 ML VIAL IVP PRN ×2 (03:09)
[2025-04-23] MEDS ORDERED: HYDROCORTISONE 2.5% RECTAL CREAM 30 GM TUBE RECTAL PRN (03:09)
[2025-04-23] MEDS ORDERED: BENZOCAINE/MENTHOL SPRAY 1 GM/SPRAY AEROSOL TOPICAL PRN (03:09)
[2025-04-23] MEDS ORDERED: diphenhydrAMINE 50 MG CAP PO PRN (03:09)
[2025-04-23] MEDS ORDERED: LANOLIN CREAM 1 GM TUBE TOPICAL PRN (03:09)
[2025-04-23] MEDS ORDERED: ZOLPIDEM 5 MG TAB PO PRN (03:09)
[2025-04-23] MEDS ORDERED: SIMETHICONE 80 MG CHEWABLE PO PRN (03:09)
[2025-04-23] MEDS ORDERED: OXYTOCIN 30 UNITS/500 ML NS 30 UNIT in SALINE 1 500ML.BAG IV SCH (03:15)
--- NOTE | 2025-04-23 03:16 | P.PROBDLV ---
Vaginal Delivery Note - . Vaginal Delivery Note: The patient is a 30-year-old 3 para 1-0-1-1 admitted at 37-2/7 weeks by good dating parameters. She is admitted for induction of labor secondary to a diagnosis of hepatitis C as well as chronic hypertension. She has had reassuring testing since 32 weeks on a weekly basis. Her was otherwise uncomplicated and group B strep status is negative. On labor and delivery, she had all signs reassuring with category 1 heart rate tracing. She had Pitocin augmentation started and underwent artificial rupture of membranes for clear to light meconium stained fluid. She made progress to the active phase of labor and had an epidural catheter placed for analgesia. She continued to make steady progress through the active phase of labor to complete after which time she pushed to a normal spontaneous vaginal delivery over the course of approximately 2-3 contractions. She delivered a viable 6 pound 4.5 ounce baby boy with Apgars of 9 at 1 minute and 9 at 5 minutes delivered in the direct occiput anterior position. The placenta was delivered spontaneously, intact, and grossly normal with a grossly normal three-vessel cord inserted approximately 2 to 3 cm from the margin of the placental disc. There was a small second-degree midline perineal laceration over the site of a previous laceration episiotomy which was repaired in standard fashion using 3-0 chromic catgut without difficulty. Estimated blood loss for the case was approximately 200 mL. There were no complications. All sponge, instrument, and needle counts were correct. Both mother and infant are resting comfortably in recovery.
[2025-04-23] MEDS: IBUPROFEN 800 MG TAB PO PRN (04:25)
[2025-04-23] MEDS: ACETAMINOPHEN TAB 500 MG TAB PO PRN (08:27)
--- NOTE | 2025-04-23 10:04 | P.CONS ---
History of Present Illness - Reason for Consult Consult date: 04/23/25 Positive hepatitis C, start treatment Requesting physician: Aneudy Cuevas - Chief Complaint Induction of labor - History of Present Illness This a pleasant 30-year-old female who was 37 weeks scheduled for induction of labor secondary to positive hepatitis C status. Past medical history also includes hypertension. Patient was diagnosed with hepatitis C during this in her first trimester. She was referred to [place] to follow with maternal- medicine. Patient has had no prior treatment for hepatitis C. Patient believes she contracted it from her who is also positive for hepatitis C and had seen Dr. Ceja in the past however never had gotten treatment. Patient's states that he contracted hepatitis C from his mother. Patient was a spontaneous vaginal delivery this morning with no reported complications. She has started breast-feeding and would like to continue breast-feeding if possible. She denies any knowledge of any cirrhosis of the liver. No current LFTs available. Last noted to have elevated AST and ALT in February of this year 295 and 359 respectively. Review of Systems REVIEW OF SYSTEMS: CARDIOPULMONARY: No chest pain or shortness of breath. Gastrointestinal: Abdominal pain secondary to just giving . No nausea or vomiting. No hematemesis, coffee-ground emesis. No rectal bleeding, or melena. GENITOURINARY: No dysuria or hematuria. MUSCULOSKELETAL: Reports normal range of motion. SKIN: No rashes. No jaundice. ENDOCRINE: No chills, fevers. No excessive weight gain or loss. No polydipsia or polyuria. PSYCHIATRIC: Unremarkable. NEUROLOGY: No change in mental status. Denies dizziness, headache. ENT: Vision unremarkable. CONSTITUTIONAL: No recent weight loss. No fever, chills, night sweats. Past Medical History Past Medical History: No Reported History Additional Past Medical History / Comment(s): PIH with first History of Any Multi-Drug Resistant Organisms: None Reported Past Surgical History: No Surgical Hx Reported Past Anesthesia/Blood Transfusion Reactions: No Reported Reaction Past Psychological History: ADD/ADHD, Bipolar Smoking Status: Former smoker Past Alcohol Use History: None Reported Past Drug Use History: None Reported, Marijuana Medications and Allergies Home Medications Medication Instructions Recorded Confirmed Type Aspirin 1 tab PO DAILY 02/14/25 04/09/25 History Labetalol [Trandate] 1 tab PO BID 02/14/25 04/09/25 History Vit No.179/Iron/Folic 1 tab PO DAILY 02/14/25 04/09/25 History [ Tablet] Famotidine [Pepcid] 20 mg PO DAILY 03/24/25 04/09/25 History Allergies Allergy/AdvReac Type Severity Reaction Status Date / Time amoxicillin Allergy Rash/Hives Verified 04/22/25 08:14 Penicillins Allergy Rash/Hives Verified 04/22/25 08:14 Physical Exam Vitals: Vital Signs Temp Pulse Resp BP 04/23/25 05:00 97.9 F 100 16 122/64 04/23/25 04:45 115 H 16 116/59 04/23/25 04:30 100 16 136/61 04/23/25 04:15 100 16 125/59 04/23/25 04:00 96 16 128/65 04/23/25 03:45 96 16 126/83 04/23/25 03:30 104 H 16 122/77 04/23/25 03:15 98 16 131/63 04/23/25 03:00 98.8 F 99 16 122/60 Intake and Output 04/22/25 04/23/25 04/23/25 22:59 06:59 14:59 Intake Total 409.600 Output Total 350 Balance 59.600 Intake: Intake, IV Titration 409.600 Amount Oxytocin 30 Units/500 ml 409.600 Ns 30 unit In Saline 1 500ml.bag @ Per Protocol IV .Q0M [facility] Rx#:[id number] Output: Output, Quantitative 350 Blood Loss Other: # Voids 1 General appearance: The patient is alert, oriented, appears in no acute distress. HET: Head is normocephalic and atraumatic. Conjunctiva pink. Sclera anicteric. Neck: Supple without lymphadenopathy. Trachea midline. Heart: Regular. Lungs: Equal expansion, normal respiratory effort. Abdomen: Soft, nondistended. Skin: No rashes. No jaundice. Extremities: Normal skin color and turgor. No pedal edema. Neurological: No focal deficits. Alert and oriented x3. Results CBC & Chem 7: 04/22/25 07:00 Assessment and Plan (1) Hepatitis C Narrative/Plan: Patient reportedly positive hepatitis C antibody with no previous treatment in the past. Diagnosis in her first trimester likely contracted from her who is also positive for hepatitis C without treatment. Patient had spontaneous vaginal delivery this morning with consultation to gastroenterology to begin treatment for hepatitis C. Hepatitis C antibody and hepatitis C RNA quantitative ordered. Patient is currently breast-feeding. Recommend outpatient follow-up with gastroenterology with further recommendations forthcoming during that time. Discussed also with patient and her who is at the bedside recommendation for treatment for him as well. They seemingly understand and verbalized understanding. Current Visit: Yes Status: Acute Code(s): B19.20 - UNSPECIFIED VIRAL HEPATITIS C WITHOUT HEPATIC COMA SNOMED Code(s): 24633466 (2) Hypertension Current Visit: Yes Status: Acute Code(s): I10 - ESSENTIAL (PRIMARY) HYPERTENSION SNOMED Code(s): 62527767 (3) Normal spontaneous vaginal delivery Current Visit: Yes Status: Acute Code(s): O80 - ENCOUNTER FOR FULL-TERM UNCOMPLICATED DELIVERY SNOMED Code(s): 74636551 Plan: 1. Continue symptomatic and supportive care 2. Hepatitis C antibody and hepatitis C RNA quantitative with reflex to genotype ordered as well as acute hepatitis panel 3. Hepatic function panel ordered for tomorrow 4. Recommend outpatient follow-up with gastroenterology for further discussion for possible treatment plans. Discussed also that if patient needs treatment, medications used for treatment of hepatitis C are not safe for breast-feeding and would recommend treatment following breast-feeding. 5. Discussed with the patient and her importance for treatment for him and he certainly can follow-up with our gastroenterology office as well Thank you for this consultation, patient is cleared from gastroenterology for discharge. Dr. Ramya Santiago I agree with the dictator's note, documented as a scribe by Gladis Augustine.
[2025-04-23] MEDS: SENNOSIDES-DOCUSATE SODIUM 1 EACH TAB PO SCH (12:13)
[2025-04-23 16:14] LABS: Hepatitis A Antibody IgM Nonreactive (Nonreactive); Hepatitis B Core IgM Nonreactive (Nonreactive); Hepatitis B Surface Antigen Nonreactive (Nonreactive); Hepatitis C IgG Antibody Reactive (Nonreactive)
[2025-04-23] MEDS: CALCIUM CARBONATE 500 MG CHEWABLE PO PRN (20:18)
[2025-04-23 21:38] VITALS: RESP 16
[2025-04-24 06:07] LABS: Basophils # (A) 0.06 10*3/uL (0.00-0.10); Basophils % (A) 0.4 %; Eosinophils # (A) 0.34 10*3/uL (0.04-0.35); Eosinophils % (A) 2.3 %; HCT 29.8 % (37.2-46.3); HGB 10.2 g/dL (12.0-15.0); Lymphocytes # (A) 3.97 10*3/uL (0.90-5.00); MCH 29.6 pg (27.0-32.0); MCHC 34.2 g/dL (32.0-37.0); MCV 86.4 fL (80.0-97.0); Mean Platelet Volume 10.2 fL (9.5-12.2); Monocytes # (A) 0.88 10*3/uL (0.20-1.00); Neutrophils # (A) 9.41 10*3/uL (1.80-7.70); Neutrophils % (A) 63.8 %; Platelet Count 186 10*3/uL (140-440); RBC 3.45 10*6/uL (4.10-5.20); RDW 13.5 % (11.5-14.5); WBC 14.73 10*3/uL (4.50-10.00)
--- NOTE | 2025-04-24 08:34 | P.DS ---
Providers Date of admission: 04/22/25 06:08 Expected date of discharge: 04/24/25 Attending physician: Aneudy Cuevas Consults: 04/23/25 03:11 Consult Physician Routine Consulting Provider: Angelica Santiago Consult Reason/Comments: Status postnormal vaginal delivery, positive hepatitis C, initiate treatmen Do you want consulting provider notified?: Yes, Notify in am Primary care physician: Stated None - Discharge Diagnosis(es) (1) Hepatitis C Current Visit: Yes Status: Acute (2) Term Current Visit: Yes Status: Acute (3) Chronic hypertension affecting Current Visit: Yes Status: Acute (4) Normal spontaneous vaginal delivery Current Visit: Yes Status: Acute Hospital Course: The patient is a 30-year-old 3 para 1-0-1-1 admitted at 37+ weeks by good dating parameters. She is admitted for induction of labor with a diagnosis of hepatitis C and chronic hypertension for which she has been stable on labetalol twice daily with reassuring testing weekly since 32 weeks. There have been no issues with the hepatitis C during the aside from mildly elevated liver functions. Group B strep status is negative. On labor and delivery, she had Pitocin started and underwent artificial rupture of membra tawny for clear fluid. She made slow progress through the latent phase of labor but ultimately had an epidural catheter placed around the onset of the active phase of labor. She then progressed steadily through the active phase of labor to complete and pushed to a normal spontaneous vaginal delivery of a viable 6 pound 4.5 ounce baby boy with Apgars of 9 at 1 minute and 9 at 5 minutes. Her course was unremarkable with vital signs remaining stable and her temperature was afebrile throughout. She did have a GI consultation done to begin to initiate the treatment process for hepatitis C done on the day of delivery. She was deemed stable for discharge on day #1 and was discharged home to follow-up in the office in 6 weeks time routinely. Discharge instructions included calling for any significantly increased bleeding or foul- smelling lochia, significantly increased fever or abdominal pain, perineal complaints, breast complaints, or anything else that concerned her. She was additionally instructed to have nothing in the vagina for at least 6 weeks time to include intercourse. She understood her instructions and agrees to follow-up as noted above. Discharge medications included continued vitamins as she has opted to breast-feed. She was otherwise to use [id number] analgesic pain medications as needed. Maternal blood type is A+ and rubella status is immune. Procedures: #1. Pitocin induction #2. Artificial rupture of membranes #3. Epidural analgesia #4. Normal spontaneous vaginal delivery #5. Repair of perineal laceration #6. GI consultation Patient Condition at Discharge: Stable Plan - Discharge Summary New Discharge Prescriptions: No Action Famotidine [Pepcid] 20 mg PO DAILY Vit No.179/Iron/Folic [ Tablet] 1 tab PO DAILY Labetalol [Trandate] 1 tab PO BID Aspirin 1 tab PO DAILY Discharge Medication List Aspirin 1 tab PO DAILY 02/14/25 [History] Labetalol [Trandate] 1 tab PO BID 02/14/25 [History] Vit No.179/Iron/Folic [ Tablet] 1 tab PO DAILY 02/14/25 [His tory] Famotidine [Pepcid] 20 mg PO DAILY 03/24/25 [History] Follow up Appointment(s)/Referral(s): Aneudy Cuevas MD [STAFF PHYSICIAN] - 06/04/25 10:45 am Angelica Santiago MD [STAFF PHYSICIAN] - 4 Weeks Discharge Disposition: HOME SELF-CARE
--- NOTE | 2025-04-24 10:47 | P.PN ---
Subjective Progress Note Date: 04/24/25 Principal diagnosis: Hepatitis C This a pleasant 30-year-old female who was 37 weeks scheduled for induction of labor secondary to positive hepatitis C status. Past medical history also includes hypertension. Patient was diagnosed with hepatitis C during this in her first trimester. She was referred to [facility] to follow with maternal- medicine. Patient has had no prior treatment for hepatitis C. Patient believes she contracted it from her who is also positive for hepatitis C and had seen Dr. Ceja in the past however never had gotten treatment. Patient's states that he contracted hepatitis C from his mother. Patient was a spontaneous vaginal delivery this morning with no reported complications. She has started breast-feeding and would like to continue breast-feeding if possible. She denies any knowledge of any cirrhosis of the liver. No current LFTs available. Last noted to have elevated AST and ALT in February of this year 295 and 359 respectively. 04/24/2025 Patient is seen and examined today as a follow-up. Acute hepatitis panel resulted with hepatitis A and B both nonreactive but hepatitis C antibody reactive. She denies any abdominal pain other than some cramping post labor and delivery. No nausea or vomiting. Hepatic function panel is currently pending. Objective - Vital Signs Vital signs: Vital Signs Temp 97.6 F 04/24/25 08:00 Pulse 60 04/24/25 08:00 Resp 16 04/24/25 08:00 BP 115/66 04/24/25 08:00 Pulse Ox 100 04/24/25 08:00 FiO2 Intake & Output 04/23/25 04/24/25 04/24/25 18:59 06:59 18:59 Other: Voiding Method Toilet - Exam General appearance: The patient is alert, oriented, appears in no acute distress. HET: Head is normocephalic and atraumatic. Conjunctiva pink. Sclera anicteric. Neck: Supple without lymphadenopathy. Abdomen: Soft, nontender, nondistended. Extremities: Normal skin color and turgor. No pedal edema Skin: No rashes, no jaundice Neurological: No focal deficits. Alert and oriented. - Labs CBC & Chem 7: 04/24/25 05:38 Labs: Abnormal Lab Results - Last 24 Hours (Table) 04/23/25 04/24/25 Range/Units 12:12 05:38 WBC 14.73 H (4.50-10.00) 10*3/uL RBC 3.45 L (4.10-5.20) 10*6/uL Hgb 10.2 L (12.0-15.0) g/dL Hct 29.8 L (37.2-46.3) % Immature Gran # 0.07 H (0.00-0.04) 10*3/uL Neutrophils # 9.41 H (1.80-7.70) 10*3/uL Hep C IgG Ab Reactive A (Nonreactive) Assessment and Plan (1) Hepatitis C Narrative/Plan: Patient reportedly positive hepatitis C antibody with no previous treatment in the past. Diagnosis in her first trimester likely contracted from her who is also positive for hepatitis C without treatment. Patient had spontaneous vaginal delivery this morning with consultation to gastroenterology to begin treatment for hepatitis C. Hepatitis C antibody and hepatitis C RNA quantitative ordered. Patient is currently breast-feeding. Recommend outpatient follow-up with gastroenterology with further recommendations forthcoming during that time. Discussed also with patient and her who is at the bedside recommendation for treatment for him as well. They seemingly understand and verbalized understanding. Current Visit: Yes Status: Acute Code(s): B19.20 - UNSPECIFIED VIRAL HEPATITIS C WITHOUT HEPATIC COMA SNOMED Code(s): 70209846 (2) Hypertension Current Visit: Yes Status: Acute Code(s): I10 - ESSENTIAL (PRIMARY) HYPERTENSION SNOMED Code(s): 15656566 (3) Normal spontaneous vaginal delivery Current Visit: Yes Status: Acute Code(s): O80 - ENCOUNTER FOR FULL-TERM UNCOMPLICATED DELIVERY SNOMED Code(s): 68141252 Plan: 1. Continue symptomatic and supportive care 2. Hepatitis C antibody and hepatitis C RNA quantitative with reflex to genotype ordered as well as acute hepatitis panel 3. Hepatic function panel ordered and received but currently pending. 4. Recommend outpatient follow-up with gastroenterology for further discussion for possible treatment plans. Discussed also that if patient needs treatment, medications used for treatment of hepatitis C are not safe for breast-feeding and would recommend treatment following breast-feeding. 5. Discussed with the patient and her importance for treatment for him and he certainly can follow-up with our gastroenterology office as well Thank you for this consultation, patient is cleared from gastroenterology for discharge. We will sign off at this time. Dr. Ramya Santiago I agree with the dictator's note, documented as a scribe by Gladis Augustine.
[2025-04-24 16:03] VITALS: BP 114/64; PULSE 78; TEMP 97.8
[2025-04-24 17:25] LABS: Bilirubin, Conjugated 0.28 mg/dL (0.20-0.40); Bilirubin,Unconjugated 0.22 mg/dL (0.20-1.00); Total Bilirubin 0.5 mg/dL (0.3-1.2)
[2025-04-24 17:26] LABS: Albumin 3.1 g/dL (3.8-4.9); Total Protein 5.7 g/dL (6.2-8.2)
== END 2025-04-24 17:30 | disposition home or self-care (01) | DRG 560 ==
LOC: 4FBP 06:08
PROVIDERS: ADMIT Obstetrics & Gynecology; ATTEND Obstetrics & Gynecology
PROC: 10E0XZZ Delivery of Products of Conception, External Approach (ICD-10-PCS; principal; 2025-04-23)
PROC: 0KQM0ZZ Repair Perineum Muscle, Open Approach (ICD-10-PCS; 2025-04-23)
PROC: 10907ZC Drainage of Amniotic Fluid, Therapeutic from Products of Conception, Via Natural or Artificial Opening (ICD-10-PCS; 2025-04-23)
DX: O10.92 Unspecified pre-existing hypertension complicating childbirth (principal); O70.1 Second degree perineal laceration during delivery; Z3A.37 37 weeks gestation of pregnancy; Z37.0 Single live birth; B19.20 Unspecified viral hepatitis C without hepatic coma; O77.0 Labor and delivery complicated by meconium in amniotic fluid; O98.42 Viral hepatitis complicating childbirth; Z87.891 Personal history of nicotine dependence; Z79.82 Long term (current) use of aspirin
CPT/HCPCS: 80074; 80076; 85025; 86850; 86900; 86901; 87522